=== PATIENT | female | born 1995 | race Caucasian/White ===

== ENCOUNTER → 2019-08-06 13:26 | Outpatient (BNVA) | payer MEDICAID, SELFPAY | PROVIDERS: Visit Provider Nurse Practitioner Women's Health | DX: O09.891 Supervision of other high risk pregnancies, first trimester (principal); Z3A.08 8 weeks gestation of pregnancy | CPT/HCPCS: 81003 ==

== ENCOUNTER → 2019-08-16 08:57 | Outpatient (BNVA) | payer MEDICAID, SELFPAY | PROVIDERS: Visit Provider Obstetrics & Gynecology Female Pelvic Medicine and Reconstructive Surgery | DX: O09.891 Supervision of other high risk pregnancies, first trimester (principal); Z3A.10 10 weeks gestation of pregnancy | CPT/HCPCS: 80307; 81003; 85027; 86592; 86762; 86803; 86850; 86900; 87086; 87340; 87806 ==

== ENCOUNTER → 2019-09-02 09:42 | Outpatient (BNVA) | payer MEDICAID, SELFPAY | PROVIDERS: Visit Provider Obstetrics & Gynecology | DX: N89.8 Other specified noninflammatory disorders of vagina; O09.891 Supervision of other high risk pregnancies, first trimester; O09.299 Supervision of pregnancy with other poor reproductive or obstetric history, unspecified trimester; Z30.2 Encounter for sterilization | CPT/HCPCS: 81000; 87491; 87591; 87661 ==

== ENCOUNTER → 2019-09-09 14:14 | Outpatient (BNVA) | payer MEDICAID, SELFPAY | PROVIDERS: Visit Provider Obstetrics & Gynecology | DX: O09.891 Supervision of other high risk pregnancies, first trimester (principal); O09.299 Supervision of pregnancy with other poor reproductive or obstetric history, unspecified trimester; Z30.2 Encounter for sterilization; N89.8 Other specified noninflammatory disorders of vagina | CPT/HCPCS: 84156 ==

== ENCOUNTER 2019-09-20 20:02 | Emergency (ER) | payer MEDICAID, SELFPAY ==
[2019-09-20 20:08] VITALS: BP 119/69; PULSE 96; RESP 16; O2SAT 98; BMI 28.3
[2019-09-20 20:12] VITALS: TEMP 36.8
--- NOTE | 2019-09-20 20:18 | PC.NURSE ---
PATIENT STATES SHE FELT LIKE PASSING OUT ON MONDAY DURING THE DAY. PATIENT STATES SHE WOKE UP IN THE MIDDLE OF THE NIGHT ON MONDAY WITH THE SHAKES AND IT DIDNT GO AWAY SO THE TOOK TYLENOL AND CHECKED HER TEMPERATURE BUT DID NOT HAVE A FEVER. PATIENT STATES EVER SINCE THEN SHE HAS NOT FELT GOOD AND HAS HAD A HEADACHE CONSTANTLY SINCE. PATIENT STATES SHE IS 15 WEEKS WITH HER THIRD AND HAD PRE-ECLAMPSIA WITH HER FIRST .
--- NOTE | 2019-09-20 20:24 | ED_ITS ---
HPI - Dizziness General: Chief Complaint: Dizziness Stated Complaint: 15 WEEKS PREG/DIZZY Time Seen by Provider: 09/20/19 20:05 Source: patient Mode of arrival: ambulatory Limitations: no limitations History of Present Illness: MD elicited complaint: dizziness, lightheadedness and near syncope Description: lightheadedness Review of Systems General: Reports: 10 or more systems reviewed and unremarkable except in HPI and below PFSH ED PFSH: Medical History No pertinent past medical history Denies diabetes, asthma, seizures, hypertension, DVT/PE Surgical History No history of previous surgery Family History Grandfather Diabetes maternal Cancer Maternal-liver Grandmother Diabetes maternal Mother Thyroid condition Sister Thyroid condition Family/Other Breast cancer Paternal aunt; diagnosed in late 30s Denies family history of Colon cancer Ovarian cancer Heart disease Hyperlipidemia Hypertension Uterine cancer Stroke Social History Smoking and tobacco status: never smoked Alcohol intake: never Additional social history: - Drug use: Denies Alcohol use: Drank socially, once monthly on average, prior to . Reports she drank heavily in high school. 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 Physical Exam Const: COMMON NORMALS: no apparent distress, oriented x3, no limitations and alert GENERAL APPEARANCE: cooperative and comfortable ORIENTATION/CONSCIOUSNESS: Yes awake, Yes oriented to person, Yes oriented to place and Yes oriented to time HENMT: COMMON NORMALS: normocephalic, head/scalp atraumatic, external ears normal, EAC's normal, TM's normal bilaterally and external nose normal HEAD & SCALP: normal to inspection, normocephalic and atraumatic FACE & SINUS: normal facial exam, sinuses nontender and face symmetric NOSE: external nose normal, nares normal and no nasal discharge EXTERNAL EAR: Yes external ears normal EXTERNAL AUDITORY CANAL: EAC's normal TYMPANIC MEMBRANE: TM's normal bilaterally MOUTH: oral and palatal mucosa normal, lip normal and tongue normal THROAT: posterior oropharynx normal, tonsils normal and uvula midline Eye: COMMON NORMALS: PERRL, EOMs intact bilaterally and conjunctivae normal GENERAL EYE: normal appearance of both eyes and normal light reflex EYELID: eyelids normal CONJUNCTIVA: Yes conjunctivae normal PUPIL: Yes PERRL EOM: Yes EOM abnormal DIRECT OPHTHALMOSCOPY: Yes normal light reflex Neck/C-Spine: COMMON NORMALS: full ROM, no lymphadenopathy, supple, no meningeal signs, no JVD and thyroid normal GENERAL: Yes normal visual inspection THYROID: thyroid normal CERVICAL SPINE: Yes cervical ROM normal and Yes normal cervical lordosis Lymph: LYMPHATIC: no lymphadenopathy noted Chest: COMMONS NORMALS: inspection of chest normal and palpation of chest normal Resp: COMMON NORMALS: normal respiratory effort, no retractions and clear to auscultation bilaterally AUSCULTATION: clear to auscultation bilaterally Cardio: COMMON NORMALS: no JVD, regular rate, regular rhythm, S1 normal heart sound, S2 normal heart sound, no gallops, no clicks, no murmurs, no rub and peripheral pulses 2+ throughout RATE: regular rate RHYTHM: regular rhythm HEART SOUNDS: S1 normal and S2 normal PERIPHERAL PULSES: pulses 2+ throughout GI: COMMON NORMALS: normal to inspection, nondistended, normoactive bowel sounds, soft to palpation, non-tender and no masses PALPATION: Yes soft : COMMON NORMALS: Yes no CVA tenderness and Yes external appearance normal BLADDER/KIDNEY EXAM: Yes no CVA tenderness Back/Pelvis: COMMON NORMALS: no CVA tenderness, thoracic and lumbar spine normal to inspection, no thoracic nor lumbar tenderness and thoraco-lumbar ROM normal Extremity: COMMON NORMALS: normal to inspection, full ROM, normal capillary refill, no joint enlargement, no clubbing, cyanosis or edema, no calf tenderness and no pedal edema GENERAL: Yes normal exam except as noted Neuro: COMMON NORMALS: oriented x3, moves all extremities, no focal motor deficits, no sensory deficits noted and gait normal SENSORIUM/ORIENTATION: Yes alert, Yes oriented to person, Yes oriented to place and Yes oriented to time MENINGEAL SIGNS: Yes no meningeal signs Psych: COMMON NORMALS: mental status grossly normal, thought process normal, cooperative, affect normal, speech normal and activity/motor behavior normal SPEECH: Yes normal speech THOUGHT PROCESS: normal thought process Skin: COMMON NORMALS: no rashes or lesions noted, no wounds and skin turgor normal GENERAL SKIN EXAM: no rashes or lesions noted and turgor normal Course ED course: pt notes dizziness x 1 week; labs drawn to assess for anemia. Labs are otherwise wnl. IV fluids given as well. Reevaluation(s): Reevaluation #1: Pt vitals are stable and lab work shows no acute findings for infection or anemia. Urine is positive for leuk estrase. Will treat for UTI and have follow up with PCP. Time: 21:13 Vital Signs: Vital signs: Vital Signs Temperature 98.2 F 09/20/19 20:12 Pulse Rate 77 09/20/19 20:40 Respiratory Rate 14 09/20/19 20:40 Blood Pressure 113/72 09/20/19 20:40 Pulse Oximetry 97 09/20/19 20:40 MDM - Dizziness Lab Data: Labs: Lab Results 09/20/19 09/20/19 09/20/19 Range/Units 20:30 20:35 20:35 WBC 5.2 (4.0-10.0) 10^3/ uL RBC 4.38 (4.1-5.3) 10^6/u L Hgb 13.0 (11.5-15.3) g/dL Hct 38.1 (37.0-47.0) % MCV 87.0 (81-99) fL MCH 29.7 (28.0-34.0) pg MCHC 34.1 (30.0-36.0) g/dL RDW 13.4 (12.1-15.1) % Plt Count 167 (130-400) 10^3/c mm MPV 9.6 (7.4-10.4) fL Neut % (Auto) 69.8 % Lymph % (Auto) 22.2 % [place] % (Auto) 7.2 % Eos % (Auto) 0.4 % Baso % (Auto) 0.2 % Neut # (Auto) 3.6 (1.8-7.7) 10^3/u L Lymph # (Auto) 1.2 (0.8-4.8) 10^3/u L [place] # (Auto) 0.4 (0.2-0.9) 10^3/u L Eos # (Auto) 0.0 (0.0-0.8) 10^3/u L Baso # (Auto) 0.0 (0.0-0.1) 10^3/u L Nucleated RBC % (a uto) 0 % Nucleated RBCs # 0.0 /100WBC Sodium 135 L (136-145) mmol/L Potassium 3.7 (3.5-5.1) mmol/L Chloride 102 (98-107) mmol/L Carbon Dioxide 23 (22-29) mmol/L Anion Gap 13.7 (5-19) BUN 7 (6-20) mg/dL Creatinine 0.6 (0.5-0.9) mg/dL GFR Calculation 126.2 (90-130) mL/min Glucose 89 (65-115) mg/dL Calculated Osmolal ity 275 L (285-295) mOsm/k g Calcium 9.0 (8.5-10.5) mg/dL Total Bilirubin 0.3 (0.15-1.2) mg/dL AST 20 (0-32) U/L ALT 11 (0-33) U/L Alkaline Phosphata se 61 (35-105) IU/L Total Protein 7.6 (6.6-8.7) g/dL Albumin 4.0 (3.5-5.2) g/dL Globulin 3.6 (1.3-4.6) g/dL Urine Color Yellow (Yellow) Urine Appearance Clear (CLEAR) Urine pH 5 (5-7) Ur Specific Gravit y 1.020 (1.005-1.030) Urine Protein Neg (Negative) Urine Glucose (UA) Norm (Normal) Urine Ketones 3+ H (Negative) Urine Blood Neg (Negative) Urine Nitrate Negative (Negative) Urine Bilirubin 1+ H (NEGATIVE) Urine Urobilinogen 4 H (Negative) mg/dL Ur Leukocyte Amber ase 2+ H (Negative) Discharge Plan Discharge Patient Disposition: Home, Self-Care Clinical Impression: UTI (urinary tract infection) Condition: Stable Prescriptions: New nitrofurantoin monohyd/m-cryst [Macrobid] 100 mg capsule 100 mg PO BID 7 Days Qty: 14 RF: 0 No Action prenat.vits,alfredito,[id number]-encr-hyzud Tablet 1 tab PO DAILY RF: 0 Discharge Diet: Usual diet Discharge Activity: Increase activity as tolerated Activity Restrictions/Additional Instructions: Increase fluid intake and follow up with your OBGYN next week. Coding Level of Care Code ED Sewage Plant Supervisor for [facility] Fwd Exam Comprehensive
--- NOTE | 2019-09-20 20:25 | PC.NURSE ---
PATIENT AMBULATED TO BATHROOM WITH CLEAN CATCH PACKAGING, CLEAN CATCH EDUCATION PROVIDED TO PATIENT.
[2019-09-20] MEDS: sodium chloride 0.9% 500 ML 999 ML IV ×2 (20:36→21:12)
[2019-09-20 20:40] VITALS: BP 113/72; PULSE 77; RESP 14; O2SAT 97
[2019-09-20 20:42] LABS: Basophils % 0.2 %; Eosinophils % 0.4 %; Hematocrit 38.1 % (37.0-47.0); Lymphocytes # 1.2 10^3/uL (0.8-4.8); Lymphocytes % 22.2 %; Mean Corpuscular HGB Conc 34.1 g/dL (30.0-36.0); Mean Corpuscular Hemoglobin 29.7 pg (28.0-34.0); Mean Platelet Volume 9.6 fL (7.4-10.4); Monocytes # 0.4 10^3/uL (0.2-0.9); Monocytes % 7.2 %; Neutrophils # 3.6 10^3/uL (1.8-7.7); Neutrophils % 69.8 %; Nucleated Red Blood Cells % 0 %; Platelet Count 167 10^3/cmm (130-400); Red Blood Count 4.38 10^6/uL (4.1-5.3); Red Cell Distribution Width 13.4 % (12.1-15.1); White Blood Count 5.2 10^3/uL (4.0-10.0)
[2019-09-20 20:49] LABS: Add Urine Microscopic? YES; Bilirubin Urine 1+ (NEGATIVE); Blood Urine Neg (Negative); Glucose Urine UA Norm (Normal); Ketones Urine 3+ (Negative); Leukocyte Esterase Urine 2+ (Negative); Nitrate Urine Negative (Negative); Protein Urine Neg (Negative); Urine Appearance Clear (CLEAR); Urine Color Yellow (Yellow); Urobilinogen Urine 4 mg/dL (Negative); pH Urine 5 (5-7)
[2019-09-20 20:56] LABS: Alanine Aminotransferase 11 U/L (0-33); Alkaline Phosphatase 61 IU/L (35-105); Anion Gap 13.7 (5-19); Aspartate Amino Transferase 20 U/L (0-32); Blood Urea Nitrogen 7 mg/dL (6-20); Carbon Dioxide 23 mmol/L (22-29); Chloride 102 mmol/L (98-107); Globulin 3.6 g/dL (1.3-4.6); Glomerular Filtration Rate 126.2 mL/min (90-130); Glucose 89 mg/dL (65-115); Osmolality Calculated 275 mOsm/kg (285-295); Potassium 3.7 mmol/L (3.5-5.1); Sodium 135 mmol/L (136-145); Total Bilirubin 0.3 mg/dL (0.15-1.2); Total Protein 7.6 g/dL (6.6-8.7)
[2019-09-20 21:12] LABS: Bacteria Urine 2+; Mucus Urine 1+; RBC Urine 0-4 /hpf (0-2); WBC Urine 25-40 /hpf (0-5)
[2019-09-20] MEDS: nitrofurantoin SR (BID) 100 mg Capsule PO (21:12)
[2019-09-20 21:13] LABS: Add Urine Culture? Yes
--- NOTE | 2019-09-20 21:16 | ED_ITS ---
HPI - Dizziness General: Chief Complaint: Dizziness Stated Complaint: 15 WEEKS PREG/DIZZY Time Seen by Provider: 09/20/19 20:05 Source: patient Mode of arrival: ambulatory Limitations: no limitations Review of Systems General: Reports: 10 or more systems reviewed and unremarkable except in HPI and below PFSH ED PFSH: Medical History No pertinent past medical history Denies diabetes, asthma, seizures, hypertension, DVT/PE Surgical History No history of previous surgery Family History Grandfather Diabetes maternal Cancer Maternal-liver Grandmother Diabetes maternal Mother Thyroid condition Sister Thyroid condition Family/Other Breast cancer Paternal aunt; diagnosed in late 30s Denies family history of Colon cancer Ovarian cancer Heart disease Hyperlipidemia Hypertension Uterine cancer Stroke Social History Smoking and tobacco status: never smoked Alcohol intake: never Additional social history: - Drug use: Denies Alcohol use: Drank socially, once monthly on average, prior to . Reports she drank heavily in high school. 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 Physical Exam Const: COMMON NORMALS: no apparent distress, oriented x3, no limitations and alert GENERAL APPEARANCE: cooperative and comfortable ORIENTATION/CONSCIOUSNESS: Yes awake, Yes oriented to person, Yes oriented to place and Yes oriented to time HENMT: COMMON NORMALS: normocephalic, head/scalp atraumatic, external ears normal, EAC's normal, TM's normal bilaterally and external nose normal HEAD & SCALP: normal to inspection, normocephalic and atraumatic FACE & SINUS: normal facial exam, sinuses nontender and face symmetric NOSE: external nose normal, nares normal and no nasal discharge EXTERNAL EAR: Yes external ears normal EXTERNAL AUDITORY CANAL: EAC's normal TYMPANIC MEMBRANE: TM's normal bilaterally MOUTH: oral and palatal mucosa normal, lip normal and tongue normal THROAT: posterior oropharynx normal, tonsils normal and uvula midline Eye: COMMON NORMALS: PERRL, EOMs intact bilaterally and conjunctivae normal GENERAL EYE: normal appearance of both eyes and normal light reflex EYELID: eyelids normal CONJUNCTIVA: Yes conjunctivae normal PUPIL: Yes PERRL EOM: Yes EOM abnormal DIRECT OPHTHALMOSCOPY: Yes normal light reflex Neck/C-Spine: COMMON NORMALS: full ROM, no lymphadenopathy, supple, no meningeal signs, no JVD and thyroid normal GENERAL: Yes normal visual inspection THYROID: thyroid normal CERVICAL SPINE: Yes cervical ROM normal and Yes normal cervical lordosis Lymph: LYMPHATIC: no lymphadenopathy noted Chest: COMMONS NORMALS: inspection of chest normal and palpation of chest normal Resp: COMMON NORMALS: normal respiratory effort, no retractions and clear to auscultation bilaterally AUSCULTATION: clear to auscultation bilaterally Cardio: COMMON NORMALS: no JVD, regular rate, regular rhythm, S1 normal heart sound, S2 normal heart sound, no gallops, no clicks, no murmurs, no rub and peripheral pulses 2+ throughout RATE: regular rate RHYTHM: regular rhythm HEART SOUNDS: S1 normal and S2 normal PERIPHERAL PULSES: pulses 2+ throughout GI: COMMON NORMALS: normal to inspection, nondistended, normoactive bowel sounds, soft to palpation, non-tender and no masses PALPATION: Yes soft : COMMON NORMALS: Yes no CVA tenderness and Yes external appearance normal BLADDER/KIDNEY EXAM: Yes no CVA tenderness Back/Pelvis: COMMON NORMALS: no CVA tenderness, thoracic and lumbar spine normal to inspection, no thoracic nor lumbar tenderness and thoraco-lumbar ROM normal Extremity: COMMON NORMALS: normal to inspection, full ROM, normal capillary refill, no joint enlargement, no clubbing, cyanosis or edema, no calf tenderness and no pedal edema GENERAL: Yes normal exam except as noted Neuro: COMMON NORMALS: oriented x3, moves all extremities, no focal motor deficits, no sensory deficits noted and gait normal SENSORIUM/ORIENTATION: Yes alert, Yes oriented to person, Yes oriented to place and Yes oriented to time MENINGEAL SIGNS: Yes no meningeal signs Psych: COMMON NORMALS: mental status grossly normal, thought process normal, cooperative, affect normal, speech normal and activity/motor behavior normal SPEECH: Yes normal speech THOUGHT PROCESS: normal thought process Skin: COMMON NORMALS: no rashes or lesions noted, no wounds and skin turgor normal GENERAL SKIN EXAM: no rashes or lesions noted and turgor normal Course ED course: pt states dizziness over the past one week; 15 weeks . IV fluids ordered and UA as well as labs Reevaluation(s): Reevaluation #1: Pt UA shows leuk estrase. Will treat for UTI. Will proceed with DC if FHTs are wnl. Time: 21:20 Reevaluation #2: FHTs 154; proceed with dc Time: 21:33 Vital Signs: Vital signs: Vital Signs Temperature 98.2 F 09/20/19 20:12 Pulse Rate 82 09/20/19 21:17 Respiratory Rate 14 09/20/19 21:17 Blood Pressure 116/74 09/20/19 21:17 Pulse Oximetry 100 09/20/19 21:17 MDM - Dizziness Lab Data: Labs: Lab Results 09/20/19 09/20/19 09/20/19 Range/Units 20:30 20:35 20:35 WBC 5.2 (4.0-10.0) 10^3/ uL RBC 4.38 (4.1-5.3) 10^6/u L Hgb 13.0 (11.5-15.3) g/dL Hct 38.1 (37.0-47.0) % MCV 87.0 (81-99) fL MCH 29.7 (28.0-34.0) pg MCHC 34.1 (30.0-36.0) g/dL RDW 13.4 (12.1-15.1) % Plt Count 167 (130-400) 10^3/c mm MPV 9.6 (7.4-10.4) fL Neut % (Auto) 69.8 % Lymph % (Auto) 22.2 % [place] % (Auto) 7.2 % Eos % (Auto) 0.4 % Baso % (Auto) 0.2 % Neut # (Auto) 3.6 (1.8-7.7) 10^3/u L Lymph # (Auto) 1.2 (0.8-4.8) 10^3/u L [place] # (Auto) 0.4 (0.2-0.9) 10^3/u L Eos # (Auto) 0.0 (0.0-0.8) 10^3/u L Baso # (Auto) 0.0 (0.0-0.1) 10^3/u L Nucleated RBC % (a uto) 0 % Nucleated RBCs # 0.0 /100WBC Sodium 135 L (136-145) mmol/L Potassium 3.7 (3.5-5.1) mmol/L Chloride 102 (98-107) mmol/L Carbon Dioxide 23 (22-29) mmol/L Anion Gap 13.7 (5-19) BUN 7 (6-20) mg/dL Creatinine 0.6 (0.5-0.9) mg/dL GFR Calculation 126.2 (90-130) mL/min Glucose 89 (65-115) mg/dL Calculated Osmolal ity 275 L (285-295) mOsm/k g Calcium 9.0 (8.5-10.5) mg/dL Total Bilirubin 0.3 (0.15-1.2) mg/dL AST 20 (0-32) U/L ALT 11 (0-33) U/L Alkaline Phosphata se 61 (35-105) IU/L Total Protein 7.6 (6.6-8.7) g/dL Albumin 4.0 (3.5-5.2) g/dL Globulin 3.6 (1.3-4.6) g/dL Urine Color Yellow (Yellow) Urine Appearance Clear (CLEAR) Urine pH 5 (5-7) Ur Specific Gravit y 1.020 (1.005-1.030) Urine Protein Neg (Negative) Urine Glucose (UA) Norm (Normal) Urine Ketones 3+ H (Negative) Urine Blood Neg (Negative) Urine Nitrate Negative (Negative) Urine Bilirubin 1+ H (NEGATIVE) Urine Urobilinogen 4 H (Negative) mg/dL Ur Leukocyte Amber ase 2+ H (Negative) Urine RBC 0-4 H (0-2) /hpf Urine WBC 25-40 H (0-5) /hpf Ur Squamous Epith Cells 5-10 H (0-5) Urine Bacteria 2+ H (NONE) Urine Mucus 1+ Discharge Plan Discharge Patient Disposition: Home, Self-Care Clinical Impression: UTI (urinary tract infection) Condition: Stable Prescriptions: New Macrobid 100 mg capsule 100 mg PO BID 7 Days Qty: 14 RF: 0 No Action prenat.vits,alfredito,[id number] Tablet 1 tab PO DAILY RF: 0 Discharge Diet: Usual diet Discharge Activity: Increase activity as tolerated Activity Restrictions/Additional Instructions: Increase fluid intake and follow up with your OBGYN next week. Coding Level of Care Code ED National Stormwater Leader for g Fwd Exam Comprehensive
[2019-09-20 21:17] VITALS: BP 116/74; PULSE 82; RESP 14; O2SAT 100
--- NOTE | 2019-09-20 21:28 | PC.NURSE ---
FHT 154
[2019-09-20 21:33] VITALS: BP 120/78; PULSE 89; RESP 16; O2SAT 100
== END 2019-09-20 21:35 | disposition home or self-care (01) ==
LOC: ER 21:19
PROVIDERS: Emergency Provider Nurse Practitioner Family
DX: O23.42 Unspecified infection of urinary tract in pregnancy, second trimester (principal); Z3A.15 15 weeks gestation of pregnancy
CPT/HCPCS: 12345; 80053; 81001; 85025; 87086; 96360; 99283; A9270; J7040

== ENCOUNTER → 2019-09-30 10:09 | Outpatient (BNVA) | payer MEDICAID, SELFPAY | PROVIDERS: Visit Provider Obstetrics & Gynecology | DX: Z34.90 Encounter for supervision of normal pregnancy, unspecified, unspecified trimester (principal); N89.8 Other specified noninflammatory disorders of vagina; O09.299 Supervision of pregnancy with other poor reproductive or obstetric history, unspecified trimester; O09.891 Supervision of other high risk pregnancies, first trimester; Z30.2 Encounter for sterilization; Z34.81 Encounter for supervision of other normal pregnancy, first trimester | CPT/HCPCS: 84315; 87491; 87591; 87661 ==

== ENCOUNTER → 2019-10-30 10:33 | Outpatient (BNVA) | payer MEDICAID, SELFPAY | PROVIDERS: Visit Provider Obstetrics & Gynecology | DX: O09.299 Supervision of pregnancy with other poor reproductive or obstetric history, unspecified trimester (principal); Z30.2 Encounter for sterilization; O09.891 Supervision of other high risk pregnancies, first trimester; Z04.89 Encounter for examination and observation for other specified reasons | CPT/HCPCS: 81000 ==

== ENCOUNTER → 2019-11-26 08:45 | Outpatient (BNVA) | payer MEDICAID, SELFPAY | PROVIDERS: Visit Provider Obstetrics & Gynecology | DX: Z34.90 Encounter for supervision of normal pregnancy, unspecified, unspecified trimester (principal) | CPT/HCPCS: 81000 ==

== ENCOUNTER → 2019-12-25 08:22 | Outpatient (BNVA) | payer MEDICAID, SELFPAY | PROVIDERS: Visit Provider Nurse Practitioner Women's Health | DX: Z34.82 Encounter for supervision of other normal pregnancy, second trimester (principal) | CPT/HCPCS: 81000; 82950; 85027 ==

== ENCOUNTER 2020-01-03 12:20 | Outpatient (CLI) | payer MEDICAID, SELFPAY ==
[2020-01-03 12:30] VITALS: RESP 16; TEMP 36.8
[2020-01-03 12:43] VITALS: BMI 31.5
[2020-01-03 13:19] LABS: Actim Prom Negative
[2020-01-03] MEDS: terbutaline 1 mg/mL INJ 0.25 MG SUBCUT (14:08)
[2020-01-03 14:17] VITALS: BP 110/61; PULSE 92
[2020-01-03 14:20] VITALS: BP 106/55; PULSE 85
[2020-01-03 14:27] VITALS: BP 113/65; PULSE 88
[2020-01-03 14:42] VITALS: BP 111/66; PULSE 86
== END 2020-01-03 14:47 | disposition home or self-care (01) ==
LOC: OPOB 12:32 → OBGYN 12:34
PROVIDERS: Visit Provider Obstetrics & Gynecology
DX: O26.899 Other specified pregnancy related conditions, unspecified trimester (principal); Z3A.00 Weeks of gestation of pregnancy not specified; N89.8 Other specified noninflammatory disorders of vagina
CPT/HCPCS: 59025; 83986; 84112; 96372; 99211; J3105

== ENCOUNTER → 2020-01-07 11:16 | Outpatient (BNVA) | payer MEDICAID, SELFPAY | PROVIDERS: Visit Provider Obstetrics & Gynecology | DX: Z34.90 Encounter for supervision of normal pregnancy, unspecified, unspecified trimester (principal) | CPT/HCPCS: 81000 ==

== ENCOUNTER 2020-01-08 22:17 | Outpatient (CLI) | payer MEDICAID, SELFPAY ==
[2020-01-08 22:32] VITALS: BP 118/58; PULSE 86
[2020-01-08 22:36] VITALS: BMI 32.4
[2020-01-08 22:37] VITALS: TEMP 36.7
[2020-01-09 00:48] VITALS: BP 110/64; PULSE 69
[2020-01-09 00:59] LABS: Protein Urine Neg (Negative); Specific Gravity, Urine 1.015 (1.005-1.030); Urine Appearance Clear (CLEAR); Urine Color Yellow (Yellow); pH Urine 6 (5-7)
[2020-01-09 01:00] LABS: Add Urine Culture? Yes; Add Urine Microscopic? YES; Bacteria Urine TRACE; Bilirubin Urine Neg (NEGATIVE); Blood Urine Neg (Negative); Glucose Urine UA Norm (Normal); Ketones Urine Negative (Negative); Leukocyte Esterase Urine 2+ (Negative); Nitrate Urine Negative (Negative); RBC Urine 0-4 /hpf (0-2); Squamous Epithelial Cell Urine 0-4 (0-5); Urobilinogen Urine Norm (Negative); WBC Urine 25-40 /hpf (0-5)
[2020-01-09 01:27] VITALS: BP 115/65; PULSE 79
[2020-01-09 01:35] VITALS: BP 115/65; PULSE 79; RESP 16; TEMP 36.7
== END 2020-01-09 01:41 | disposition home or self-care (01) ==
LOC: OPOB 22:28 → OBGYN 22:28
PROVIDERS: Visit Provider Obstetrics & Gynecology
DX: O26.899 Other specified pregnancy related conditions, unspecified trimester (principal); Z3A.00 Weeks of gestation of pregnancy not specified; R10.9 Unspecified abdominal pain
CPT/HCPCS: 81001; 81003; 87086; 99211

== ENCOUNTER → 2020-01-21 09:02 | Outpatient (BNVA) | payer MEDICAID, SELFPAY | PROVIDERS: Visit Provider Obstetrics & Gynecology | DX: O36.60X0 Maternal care for excessive fetal growth, unspecified trimester, not applicable or unspecified (principal); Z30.2 Encounter for sterilization; O09.299 Supervision of pregnancy with other poor reproductive or obstetric history, unspecified trimester; O09.891 Supervision of other high risk pregnancies, first trimester | CPT/HCPCS: 81000 ==

== ENCOUNTER 2020-01-31 18:00 | Outpatient (CLI) | payer MEDICAID, SELFPAY ==
[2020-01-31] VITALS (35 sets, daily range): BP systolic 0–152; BP diastolic 0–91; PULSE 74–115; RESP 16–18; TEMP 36.8–37.1; O2SAT 98–100; BMI 32.5
[2020-01-31 18:38] LABS: Bilirubin Urine Neg (NEGATIVE); Blood Urine Neg (Negative); Glucose Urine UA Norm (Normal); Ketones Urine Negative (Negative); Leukocyte Esterase Urine Negative (Negative); Nitrate Urine Negative (Negative); Protein Urine Neg (Negative); Urine Appearance Clear (CLEAR); Urine Color Yellow (Yellow); Urobilinogen Urine Neg (Negative); pH Urine 6 (5-7)
[2020-01-31 18:39] LABS: Add Urine Culture? No; Bacteria Urine TRACE; Mucus Urine 2+; WBC Urine 0-4 /hpf (0-5)
[2020-01-31] MEDS: terbutaline 1 mg/mL INJ 0.25 MG SUBCUT ×2 (19:08→20:17)
[2020-01-31] MEDS: betamethasone susp 6 mg/mL 5 mL 12 MG IM (22:04)
--- NOTE | 2020-01-31 22:13 | P.PN_ITS ---
Subjective Subjective: Interval history: Ms. Leavitt is a 24 year old with LMP 06/06/2019, NERIS of 03/12/2020, which places her at 32 5/7 weeks today. Came to L&D complaining of contractions, and leaking fluids. Vitals/I&O/Wt Last Vital Signs Temp 98.3 F 01/31/20 18:20 Pulse 85 01/31/20 21:49 Resp 18 01/31/20 18:20 BP 152/91 01/31/20 21:49 Pulse Ox 100 01/31/20 21:12 Weight last 48 hrs Weight 83.461 kg Physical Exam Narrative: EXAM NARRATIVE: GA: Alert and oriented ?3. Lungs: Clear to auscultation bilaterally. Heart: Regular rhythm Abdomen: Gravid, fundal height correlates dates, nontender. RN CARDIAC CATH: SVE; dilation: 4 cm, effacement: 60 %, station: -4, presentation: Vertex, membranes: intact. ActimProm negative Extremities: no edema, no cyanosis, no calves pain. heart tracing: Basal rate: 140s bpm, Variability: Moderate, Accelerations: Present, Decelerations: Absent, Contractions: Every 10-20 minutes. A&P Assessment and plan (1) labor in third trimester: Ms. eLavitt is a 24 year old with LMP 06/06/2019, NERIS of 0 03/12/2020, which places her at 34 1/7 weeks today. Came to labor and delivery complaining of contractions since last night approximately every 2-5 minutes. Upon arrival to labor and delivery contractions were noted to be every 5 minutes. Tocolysis with terbutaline given on 2 occasions. Cervical changes were noticed from 2 cm to 4 cm in 4 hours. Contractions have subsided after the second dose of terbutaline. Patient was treated with corticosteroids for lung maturation. Due to EGA the patient was counseled regarding the recommendation to transfer to a higher care facility, that have NICU services. Patient was counseled regarding the transfer and she agreed. [facility] system was contacted, and hospitalist Dr. Russell accepted the patient. Status: Acute Qualifiers: labor delivery status: without delivery Qualified Code(s): O60.03 - labor without delivery, third trimester Attestations Medical Necessity Statement*: In my professional opinion per admitting diagnosis Coding Level of Care Code Acute Construction Management Assistant for [facility] Fwd Diagnoses labor in third trimester O60.03 labor delivery status: without delivery
== END 2020-01-31 23:04 | disposition intermediate care facility (04) ==
LOC: OPOB 18:04 → OBGYN 18:05
PROVIDERS: Visit Provider Obstetrics & Gynecology
DX: O60.03 Preterm labor without delivery, third trimester (principal); Z3A.34 34 weeks gestation of pregnancy
CPT/HCPCS: 12345; 81001; 96372; 99211; J0702; J3105

== ENCOUNTER → 2020-02-04 11:22 | Outpatient (BNVA) | payer MEDICAID, SELFPAY | PROVIDERS: Visit Provider Nurse Practitioner Women's Health | DX: Z34.90 Encounter for supervision of normal pregnancy, unspecified, unspecified trimester (principal) | CPT/HCPCS: 81000 ==

== ENCOUNTER 2020-02-07 11:48 | Observation (INO) | payer MEDICAID, SELFPAY ==
[2020-02-07 12:00] VITALS: BP 135/75; PULSE 133
[2020-02-07 12:31] VITALS: BP 116/71; PULSE 98
[2020-02-07 12:35] VITALS: BMI 32.5
[2020-02-07 12:45] LABS: Nitrazine Paper, PH Negative
[2020-02-07 13:00] VITALS: BP 117/78; PULSE 101
[2020-02-07 13:32] VITALS: BP 117/78; PULSE 101
== END 2020-02-07 13:30 | disposition home or self-care (01) ==
LOC: OBGYN 02-10 08:54
PROVIDERS: Admitting Provider Obstetrics & Gynecology; PCP Obstetrics & Gynecology; Visit Provider Obstetrics & Gynecology
DX: O26.899 Other specified pregnancy related conditions, unspecified trimester (principal)
CPT/HCPCS: 59025; 83986; 99211; G0378; G0379

== ENCOUNTER 2020-02-17 00:34 | Inpatient (IN) | payer MEDICAID, SELFPAY ==
[2020-02-16] VITALS (16 sets, daily range): BP systolic 0–140; BP diastolic 0–74; PULSE 61–96; TEMP 36.8; O2SAT 98–99; BMI 33.5
[2020-02-16] MEDS: terbutaline 1 mg/mL INJ 0.25 MG SUBCUT (22:01)
[2020-02-17] VITALS (111 sets, daily range): BP systolic 0–151; BP diastolic 0–87; PULSE 61–122; RESP 18; TEMP 37–37.1; O2SAT 98–100
[2020-02-17 00:49] LABS: Basophils % 0.2 %; Eosinophils % 0.3 %; Hematocrit 32.9 % (37.0-47.0); Hemoglobin 10.4 g/dL (11.5-15.3); Lymphocytes # 3.1 10^3/uL (0.8-4.8); Lymphocytes % 28.2 %; Mean Corpuscular HGB Conc 31.6 g/dL (30.0-36.0); Mean Corpuscular Hemoglobin 26.4 pg (28.0-34.0); Mean Corpuscular Volume 83.5 fL (81-99); Mean Platelet Volume 9.8 fL (7.4-10.4); Monocytes # 1.1 10^3/uL (0.2-0.9); Monocytes % 9.7 %; Neutrophils # 6.65 10^3/uL (1.8-7.7); Neutrophils % 61.3 %; Nucleated Red Blood Cells % 0 %; Platelet Count 182 10^3/cmm (130-400); Red Blood Count 3.94 10^6/uL (4.1-5.3); Red Cell Distribution Width 12.9 % (12.1-15.1); White Blood Count 10.8 10^3/uL (4.0-10.0)
[2020-02-17] MEDS: ampicillin 2,000 MG in sodium chloride 0.9% (plus) 50 ML 100 MG IV (01:18)
[2020-02-17] MEDS: dextrose 5%-lactated ringers 1,000 ML 125 ML IV ×2 (01:18→11:51)
[2020-02-17] MEDS: ampicillin 1,000 MG in sodium chloride 0.9% (plus) 50 ML 100 MG IV ×3 (08:42→16:22)
[2020-02-17] MEDS: lactated ringers 1,000 ML 999 ML IV (10:30)
--- NOTE | 2020-02-17 12:10 | P.ANESASSM_ITS ---
Pre-Anesthetic Assessment Pre-Anesthetic Assessment: Height/Weight: Height 1.6 m Weight 85.729 kg Temp Pulse Resp BP Pulse Ox 98.8 F 104 H 18 128/61 98 02/17/20 11:30 02/17/20 12:38 02/17/20 11:30 02/17/20 12:38 02/17/20 12:41 Preop Diagnosis: IUP Proposed Procedure: Epidural Familial anesthetic complications: None Last intake: Drinking clears Social: Social History: No alcohol and No tobacco Exam: Pre-Anes Outpt Exam: alert, oriented x 3, clear to auscultation bilaterally and regular rate & rhythm Airway: Cervical ROM: WNL MP: 2 Dentition: Full Anesthetic Plan: ASA status: 2 Anesthesia: Regional (specify below) (epidural) Other: Preeclampsia in previous Risk of > 500 ml blood loss (7ml/kg in children): Yes, adequate IV access and fluids planned Meds/Allergies Current Medications: Current Medications Generic Name Dose Route Start Last Admin Trade Name Freq PRN Reason Stop Dose Admin Dextrose/Lactated Ringer's 1,000 mls @ 125 m ls/hr 02/17/20 00:30 02/17/20 11:51 Dextrose 5%-Lact ated Ringers IV 125 mls/hr .Q8H MIKE Administration Ampicillin Sodium 1,000 mg/ 50 mls @ 100 mls/ hr 02/17/20 04:30 02/17/20 12:38 Sodium Chloride IV 100 mls/hr Q4H MIKE Administration Protocol Lactated Ringer's 1,000 mls @ 999 m ls/hr 02/17/20 10:22 02/17/20 11:51 Lactated Ringers IV Infused .Q1H1M PRN Infusion ANESTHESIA Ropivacaine 200 mg in 100 mls @ 13 mls/hr 02/17/20 10:30 02/17/20 12:40 Naropin Premix EPIDURAL 13 mls/hr .Q7H42M MIKE Administration PFSH Anesthesia PFSH: Medical History No pertinent past medical history Denies diabetes, asthma, seizures, hypertension, DVT/PE PMD: Mayela Goode Surgical History No history of previous surgery Family History Grandfather Diabetes maternal Cancer Maternal-liver Grandmother Diabetes maternal Mother Thyroid condition Sister Thyroid condition Family/Other Breast cancer Paternal aunt; diagnosed in late 30s Denies family history of Colon cancer Ovarian cancer Heart disease Hyperlipidemia Hypertension Uterine cancer Stroke Social History Smoking and tobacco status: never smoked Alcohol intake: never Female Reproductive History: : 3 Data Anesthesia CBC & Chem 7: 02/17/20 00:15 Other Labs: Laboratory Results - last 48 hr 02/17/20 00:15 WBC 10.8 H RBC 3.94 L Hgb 10.4 L Hct 32.9 L MCV 83.5 MCH 26.4 L MCHC 31.6 RDW 12.9 Plt Count 182 MPV 9.8 Neut % (Auto) 61.3 Lymph % (Auto) 28.2 [place] % (Auto) 9.7 Eos % (Auto) 0.3 Baso % (Auto) 0.2 Neut # (Auto) 6.65 Lymph # (Auto) 3.1 [place] # (Auto) 1.1 H Eos # (Auto) 0.0 Baso # (Auto) 0.0 Nucleated RBC % (auto) 0 Nucleated RBCs # 0.0 Cardiac Studies: No Data to Display
--- NOTE | 2020-02-17 12:44 | ANES.PROC ---
Anesthesia Procedures Procedure/Date: 02/17/20 Epidural: Time Out Performed: Yes Consents Signed: Procedure Consent and NPO Consent Consent: requested by attending/covering physician, from patient, risks and benefits reviewed and patient agrees to proceed Lumbar Level: L3-L4 Epidural position: sitting Epidural procedure: sterile prep of area, 1% lidocaine to numb the area, 18 g needle, negative for paresthesia passed, neg for paresthesia, test dose given, 1.5% xylocaine 1:200k epi (3), 0.2% Ropivacaine bolus ml, placed PCEA, no systemic response, sterile dressing applied, L.U.D. no apparent complications and 0.2% Ropiavacaine @ mls/hr (13) Additional Comments: Unsuccesful attempt at L3-4; sucess at L2-3, JD at 5.5 cm, threaded to 11 cm
--- NOTE | 2020-02-17 12:45 | P.PN_ITS ---
Subjective Subjective: Interval history: 24-year-old female with an estimated gestational age at 36 weeks +4 days in active labor. Refers feeling better after the epidural Vitals/I&O/Wt Last Vital Signs Temp 98.6 F 02/17/20 15:19 Pulse 88 02/17/20 17:19 Resp 18 02/17/20 15:19 BP 123/71 02/17/20 17:19 Pulse Ox 98 02/17/20 13:01 02/17/20 02/17/20 02/17/20 06:59 14:59 22:59 Intake Total 2101.517 / 2101.517 12.750 / 2114.267 Balance 2101.517 / 2101.517 12.750 / 2114.267 Weight last 48 hrs Weight 85.729 kg Weight 85.729 kg Physical Exam Narrative: EXAM NARRATIVE: GA: Alert and oriented ?3. Lungs: Clear to auscultation bilaterally. Heart: Regular rhythm and rate. Abdomen: Gravid, fundal height correlates dates, nontender. LAST PUTTER AWAY: SVE; dilation: 6-7 cm, effacement: 60 %, station: -3, presentation: Vertex, membranes: IM. Extremities: no edema, no cyanosis, no calves pain. heart tracing: Basal rate: 140s bpm, Variability: Good, Accelerations: Present, Decelerations: Absent, Contractions: Every 6-7 minutes.. Urinary Catheter Management^: De Guzman: Cath Placed During This Visit: yes Reason for Continuing Indwelling Catheter: Other Urinary Catheter Date of Insertion: 02/17/20 Urinary Catheter Time of Insertion: 12:45 Data : 02/17/20 00:15 A&P Additional A&P Information EGA at 36+4 in active labor. vertex not well applied to pelvis. Contractions have spaced thousand the epidural. Oh dose oxytocin ordered. heart tracing category 1. scalp stimulation reassuring. Anticipate vaginal delivery Attestations Medical Necessity Statement*: In my professional opinion per admitting diagnosis Coding Level of Care Code Acute Nursing Service Director for [facility]
[2020-02-17] MEDS: oxytocin 30 UNIT/500 ML BAG IV (13:44)
[2020-02-17] MEDS: betamethasone susp 6 mg/mL 5 mL 12 MG IM (15:54)
[2020-02-17] MEDS: oxytocin 30 UNIT/500 ML BAG 7 UNIT IV (16:42)
--- NOTE | 2020-02-17 19:29 | P.PCNOB_ITS ---
Delivery Note: Date of delivery: February 17, 2020 Delivery: - PRE-DELIVERY DIAGNOSIS: 24-year-old 3 para 2-0-0-2 at 36 weeks and 4 days GBS unknown Active labor Depression on medication Desires permanent sterilization History of preeclampsia on aspirin POST-DELIVERY DIAGNOSIS: Vaginal delivery on 02/17/2020 Desires interval sterilization PROCEDURE: Vaginal delivery on 02/17/2020 ANESTHESIA: Epidural anesthesia DELIVERING PHYSICIAN: Pito Hewitt FACOG PRE-DELIVERY COURSE: Ms. Leavitt is a 24-year-old 3 para 2-0-0-2 at 36 weeks and 4 days gestation who presented to labor and delivery at 5 AM with reports of contraction. She was initially noted to be 3 cm, 50% and -3 station and had regular contractions. She received a single dose of terbutaline however contractions progressed despite medication and IV fluids and she became 5 cm, 80% and -2 station. Since she was already late decision was made to admit her for delivery. She was started on ampicillin for GBS prophylaxis for unknown GBS status and state. She had received a course of steroids and received a second single dose of steroids at about 3 PM on 02/17/2020. She was allowed to progress by herself initially and contractions which had been every 2 to 4 minutes had spaced out to every 5 to 7 minutes. Over the next 6 hours she made minimal cervical change and was 7 cm 70% and -2 station at 1 PM. Decision was made to start her on Pitocin which was titrated to a maximum of 13 mIU and with this she started to have regular contractions. Artificial rupture of membranes was performed at 5:43 PM with clear fluid at which point she was noted to be 6-7, 80% and 0 station. She made rapid cervical change and was fully dilated at 6:40 PM and had the urge to push. tracing thus far has been category 1. DELIVERY NOTE: She was set up in lithotomy position and was pushing effectively. She was noted to be +3 station and continued pushing well. The head delivered in JAMES position, nuchal cord x1 was present and was reduced over the head without any difficulty the shoulders and rest of the body followed with her next push. The baby's mouth and nose were suctioned and the baby was placed on the mother's belly. Once cord pulsations stopped the cord was clamped and cut. The placenta delivered spontaneously intact with membranes and was discarded. The fundus was noted to be firm and well contracted. The vagina and cervix were inspected and no cervical or sulcal lacerations were noted. There was a first-degree vaginal laceration at about 7:00 and this was repaired with 3-0 Vicryl on an SH needle in a continuous interlocking fashion. Good reapproximation and hemostasis was noted. Baby girl, Sindhu born at 6:51 PM on 02/17/2020 with 8/9, weighing 7 pounds 3 ounces, 30 to 50 g, 19-1/2 inches long. Placenta was delivered spontaneously intact with membranes at 6:57 PM. Cotyledons were intact , centrally inserted umbilical cord with 3 vessels noted. Estimated blood loss 250 mL. Complications-none, both baby and mother were left to recovery in a stable condition -We discussed that a tubal ligation is a permanent procedure and that should she desire to have a reversal procedure the success rate of a reversal procedure is low. I also discussed the failure rate of tubal ligation is less than 1% and that should she find out she is after having the procedure, she needs to see an ROLL COATING MACHINE OPERATOR immediately as her risk of having an ectopic is higher. She also understands that the regret rate is higher when people to choose permanent sterilization at a younger age. We also discussed the other forms of reversible contraceptions including an IUD, patch, OCP, nexplanon, Depo-Provera. She understands that she has other options but she wants to have her tubes tied. We discussed the surgical procedure and the risks and benefits of surgery and a routine postoperative course, And all her and her 's questions were answered. -She states that if surgery can be done tomorrow she would like to have this don e in the morning however she really does not want to stay any later than tomorrow and if surgery cannot be done in the morning she would like to have surgery performed as an interval procedure. Coding Level of Care Code Acute Edge Inker for Pop Spence
[2020-02-18] MEDS: HYDROcodone-acetaminophen 5-325 mg Tablet PO (03:38)
[2020-02-18 05:10] VITALS: BP 125/87; PULSE 70; RESP 18; TEMP 36.6
--- NOTE | 2020-02-18 07:17 | ANE.PACU2 ---
Inpatient post-anesthesia follow up: Airway intact: Yes Vital signs: Temperature 97.8 F Pulse Rate 70 Respiratory Rate 18 Blood Pressure 125/87 Pulse Oximetry 98 Oxygen Delivery Me thod Room Air Oxygen Flow Rate Fraction of Inspir ed Oxygen Hydration adequate: Yes Nausea and vomiting: No Pain level: 1 Mental status: Baseline Additional Comments: No signs of infection at epidural site, no numbness/weakness of legs, denies headache
[2020-02-18 07:58] LABS: Hematocrit 31.9 % (37.0-47.0); Hemoglobin 10.3 g/dL (11.5-15.3); Mean Corpuscular HGB Conc 32.3 g/dL (30.0-36.0); Mean Corpuscular Hemoglobin 26.9 pg (28.0-34.0); Mean Corpuscular Volume 83.3 fL (81-99); Mean Platelet Volume 10.2 fL (7.4-10.4); Platelet Count 144 10^3/cmm (130-400); Red Blood Count 3.83 10^6/uL (4.1-5.3); Red Cell Distribution Width 12.8 % (12.1-15.1); White Blood Count 11.7 10^3/uL (4.0-10.0)
[2020-02-18] MEDS: prenatal vitamin Capsule 1 CAP PO (08:41)
[2020-02-18] MEDS: docusate sodium 100 mg Capsule PO ×2 (08:41→18:16)
[2020-02-18] MEDS: acetaminophen 325 mg Tablet 650 MG PO (08:41)
[2020-02-18 08:51] VITALS: BP 118/76; PULSE 70; RESP 18; TEMP 36.8
[2020-02-18 13:14] VITALS: BP 122/70; PULSE 78; RESP 18; TEMP 36.7
[2020-02-18 15:15] VITALS: BP 123/76; PULSE 70; RESP 18; TEMP 36.8
--- NOTE | 2020-02-18 18:32 | PM.PN ---
Subjective Subjective: Interval history: Ms. Leavitt is doing well. She just has some perineal soreness a but otherwise feels completely fine. Denies shortness of breath, chest pain, nausea, vomiting, fever, chills. She is tolerating regular diet and denies heavy vaginal bleeding. She is bottlefeeding her daughter and bonding well with her. She would like to stay until tomorrow and her daughter will be discharged. She is glad she is doing well. She continues to desire sterilization and would like to have this done as an interval procedure. OBJECTIVE/PHYSICAL EXAM: Gen.: No acute distress Heart: S1-S2 heard, regular rate and rhythm Lungs: Clear to auscultation bilaterally Abdomen: Soft, fundus firm below umbilicus Legs: No calf tenderness, no pedal edema. ASSESSMENT AND PLAN: 24-year-old 3 para 3003 status post vaginal delivery, day #1 -Doing well-bonding well with baby -P.o. pain medication and ambulation -Anticipate discharge tomorrow as she is doing well and needs 1 more day to stay with baby who was . -Anticipate interval sterilization Vitals/I&O/Wt Last Vital Signs Temp 98.2 F 02/18/20 15:15 Pulse 70 02/18/20 15:15 Resp 18 02/18/20 15:15 BP 123/76 02/18/20 15:15 Pulse Ox 98 02/17/20 13:01 02/18/20 02/18/20 02/18/20 06:59 14:59 22:59 Output Total 1000 / 1800 Balance -1000 / 775.717 Weight last 48 hrs Weight 189 lb Weight 189 lb Physical Exam Urinary Catheter Management^: De Guzman: Cath Placed During This Visit: yes, but has since been removed by the nurse Reason for Continuing Indwelling Catheter: Decision to DC Catheter Urinary Catheter Date of Insertion: 02/17/20 Urinary Catheter Time of Insertion: 12:45 Date Urinary Catheter Removed: 02/17/20 Time Urinary Catheter Discontinued: 18:42 Data : 02/18/20 07:30 Attestations Medical Necessity Statement*: Needs to stay to recover from delivery Coding Level of Care Code Acute Mechanical Engineering Technologist for Pop Spence
[2020-02-18 22:40] VITALS: BP 107/70; PULSE 65; RESP 15; TEMP 36.6; O2SAT 97
[2020-02-19] MEDS: HYDROcodone-acetaminophen 5-325 mg Tablet PO (02:18)
[2020-02-19 04:45] VITALS: BP 111/69; PULSE 70; RESP 16; TEMP 36.7; O2SAT 95
--- NOTE | 2020-02-19 07:05 | P.DS_ITS ---
Discharge Providers Date of Admission: 02/17/20 00:34 Date of Discharge: February 19, 2020 Attending Provider at Admission: Alex Louis MD Attending Provider at Discharge: Pito Hewitt Primary Care Provider: Pito Mcmanus MD Reason for Visit Reason for Visit: CONTRACTIONS Hospital Course Discharge Summary: PRE-DELIVERY DIAGNOSIS: 24-year-old 3 para 2-0-0-2 at 36 weeks and 4 days GBS unknown Active labor Depression on medication Desires permanent sterilization History of preeclampsia on aspirin POST-DELIVERY DIAGNOSIS: Vaginal delivery on 02/17/2020 Desires interval sterilization PROCEDURE: Vaginal delivery on 02/17/2020 ANESTHESIA: Epidural anesthesia DELIVERING PHYSICIAN: Pito Hewitt FACOG PRE-DELIVERY COURSE: Ms. Leavitt is a 24-year-old 3 para 2-0-0-2 at 36 weeks and 4 days gestation who presented to labor and delivery at 5 AM with reports of contraction. She was initially noted to be 3 cm, 50% and -3 station and had regular contractions. She received a single dose of terbutaline however contractions progressed despite medication and IV fluids and she became 5 cm, 80% and -2 station. Since she was already late decision was made to admit her for delivery. She was started on ampicillin for GBS prophylaxis for unknown GBS status and state. She had received a course of steroids and received a second single dose of steroids at about 3 PM on 02/17/2020. She was allowed to progress by herself initially and contractions which had been every 2 to 4 minutes had spaced out to every 5 to 7 minutes. Over the next 6 hours she made minimal cervical change and was 7 cm 70% and -2 station at 1 PM. Decision was made to start her on Pitocin which was titrated to a maximum of 13 mIU and with this she started to have regular contractions. Artificial rupture of membranes was performed at 5:43 PM with clear fluid at which point she was noted to be 6-7, 80% and 0 station. She made rapid cervical change and was fully dilated at 6:40 PM and had the urge to push. tracing thus far has been category 1. DELIVERY NOTE: She was set up in lithotomy position and was pushing effectively. She was noted to be +3 station and continued pushing well. The head delivered in JAMES position, nuchal cord x1 was present and was reduced over the head without any difficulty the shoulders and rest of the body followed with her next push. The baby's mouth and nose were suctioned and the baby was placed on the mother's belly. Once cord pulsations stopped the cord was clamped and cut. The placenta delivered spontaneously intact with membranes and was discarded. The fundus was noted to be firm and well contracted. The vagina and cervix were inspected and no cervical or sulcal lacerations were noted. There was a first-degree vaginal laceration at about 7:00 and this was repaired with 3-0 Vicryl on an SH needle in a continuous interlocking fashion. Good reapproximation and hemostasis was noted. Baby girl, Sindhu born at 6:51 PM on 02/17/2020 with 8/9, weighing 7 pounds 3 ounces, 30 to 50 g, 19-1/2 inches long. Placenta was delivered spontaneously intact with membranes at 6:57 PM. Cotyledons were intact , centrally inserted umbilical cord with 3 vessels noted. Estimated blood loss 250 mL. Complications-none, both baby and mother were left to recovery in a stable condition HOSPITAL COURSE: She underwent an uncomplicated vaginal delivery on 02/17/2020. She did well on day 0 and was ambulating well, tolerating regular diet, voiding freely, passing flatus. She was breast-feeding without difficulty and bonding well with her daughter. Pain was well-controlled with by mouth pain medication. She denied nausea, vomiting, fever, chills, shortness of breath, leg pain. She had moderate vaginal bleeding. On day #1 she continued to do well with stable vital signs and stable hemoglobin at 10.3. She continued to do well on day #2 without any new problems. She had no preeclamptic symptoms and minimal swelling.. She was discharged home on day 2 in a stable condition. Warning signs for endometritis, mastitis, DVT/PE, preeclampsia were reviewed with her. Post delivery activity restrictions were also reviewed with her at all her questions were answered to her satisfaction. Plans on having cleve rilization done for contraception--was unable to have sterilization because of COVID testing rules of the hospital. We will plan for 5-week appointment with tubal ligation laparoscopically with total salpingectomy at 6 weeks EXAM AT DISCHARGE: Gen.: No acute distress Heart: S1-S2 heard, regular rate and rhythm Lungs: Clear to auscultation bilaterally Abdomen: Soft, fundus firm below umbilicus Legs: No calf tenderness, no pedal edema. CONDITION AT DISCHARGE: Stable Physical Exam Urinary Catheter Management^: De Guzman: Cath Placed During This Visit: yes, but has since been removed by the nurse Reason for Continuing Indwelling Catheter: Decision to DC Catheter Urinary Catheter Date of Insertion: 02/17/20 Urinary Catheter Time of Insertion: 12:45 Date Urinary Catheter Removed: 02/17/20 Time Urinary Catheter Discontinued: 18:42 Discharge Data Data Completed and Pending: Labs from last 24 hours 02/18/20 07:30 WBC 11.7 H RBC 3.83 L Hgb 10.3 L Hct 31.9 L MCV 83.3 MCH 26.9 L MCHC 32.3 RDW 12.8 Plt Count 144 MPV 10.2 Vitals: Last Vital Signs Temp 98.1 F 02/19/20 04:45 Pulse 70 02/19/20 04:45 Resp 16 02/19/20 04:45 BP 111/69 02/19/20 04:45 Pulse Ox 95 02/19/20 04:45 Discharge Plan Discharge Patient Disposition: Home Condition: Stable Prescriptions: New docusate sodium 100 mg Capsule 100 mg PO BID PRN (Reason: constipation) Qty: 30 RF: 0 ibuprofen 800 mg tablet 800 mg PO Q8H Qty: 30 RF: 0 Continued prenat.vits,alfredito,nsc-dtmu-dcapw Tablet 1 tab PO DAILY RF: 0 fluoxetine [Prozac] 10 mg capsule 10 mg PO DAILY RF: 0 Discontinued aspirin 81 mg tablet,delayed release (DR/EC) 81 mg PO DAILY RF: 0 Discharge Orders: Discharge Order (Routine); Ordered 02/19/20 Ordered By: Pito Mcmanus Referrals: Pito Mcmanus MD [Primary Care Provider] - (5-week visit) Discharge Diet: Usual diet Activity Restrictions/Additional Instructions: Pelvic rest for 6 weeks, no heavy lifting for 6 weeks Discharge Attestations Time Spent in Discharge Care*: greater than 30 min Quality Metrics Clinical Quality Measures During this hospital stay, did patient experience: None Coding Level of Care Code Acute Copy Center Associate for Pop Spence
[2020-02-19] MEDS: prenatal vitamin Capsule 1 CAP PO (08:26)
[2020-02-19] MEDS: docusate sodium 100 mg Capsule PO (08:26)
[2020-02-19] MEDS: benzocaine-menthol 78 gm Canister 1 SPRAY TOPICAL (08:27)
[2020-02-19 10:03] VITALS: BP 122/78; PULSE 112; RESP 16; TEMP 36.8
[2020-02-19 10:17] VITALS: BP 122/78; PULSE 112; RESP 16; TEMP 36.8
== END 2020-02-19 10:10 | disposition home or self-care (01) | DRG 807 ==
LOC: OBGYN 08:16 → OPOB 08:18 → OBGYN 08:18
PROVIDERS: Admitting Provider Obstetrics & Gynecology; PCP Obstetrics & Gynecology; Visit Provider Obstetrics & Gynecology
DX: O60.14X0 Preterm labor third trimester with preterm delivery third trimester, not applicable or unspecified (principal); Z37.0 Single live birth; O99.344 Other mental disorders complicating childbirth; F41.9 Anxiety disorder, unspecified; O69.2XX0 Labor and delivery complicated by other cord entanglement, with compression, not applicable or unspecified; O70.0 First degree perineal laceration during delivery; Z3A.36 36 weeks gestation of pregnancy
CPT/HCPCS: 12345; 36415; 51702; 59025; 59409; 85025; 85027; 96372; 99211; J0290; J0702; J2795; J3105

== ENCOUNTER 2020-04-02 06:00 | Day surgery (SDC) | payer MEDICAID, SELFPAY ==
[2020-03-27 08:53] VITALS: BMI 30.8
[2020-03-27 09:56] LABS: Basophils % 0.3 %; Eosinophils # 0.1 10^3/uL (0.0-0.8); Eosinophils % 1.8 %; Hematocrit 41.7 % (37.0-47.0); Lymphocytes # 2.2 10^3/uL (0.8-4.8); Lymphocytes % 30.5 %; Mean Corpuscular HGB Conc 31.2 g/dL (30.0-36.0); Mean Corpuscular Hemoglobin 26.5 pg (28.0-34.0); Mean Corpuscular Volume 84.9 fL (81-99); Mean Platelet Volume 9.6 fL (7.4-10.4); Monocytes # 0.6 10^3/uL (0.2-0.9); Monocytes % 7.8 %; Neutrophils # 4.24 10^3/uL (1.8-7.7); Neutrophils % 59.5 %; Nucleated Red Blood Cells % 0 %; Platelet Count 224 10^3/cmm (130-400); Red Blood Count 4.91 10^6/uL (4.1-5.3); Red Cell Distribution Width 14.2 % (12.1-15.1); White Blood Count 7.1 10^3/uL (4.0-10.0)
--- NOTE | 2020-03-27 12:16 | P.ANESASSM_ITS ---
Pre-Anesthetic Assessment Pre-Anesthetic Assessment: Height/Weight: Height 1.6 m Weight 78.925 kg Preop Diagnosis: Desires sterilization Proposed Procedure: Operation Date: 04/02/20 07:00 Proposed Procedures p Laparoscopic Bilateral Salpingectomy 01303 Z30.9(Bilateral) - Pito Mariscal MD Was Beta Shira taken within 24 hours: N/A Social: Social History: No alcohol and No tobacco Exam: Pre-Anes Outpt Exam: alert, oriented x 3, clear to auscultation bilaterally and regular rate & rhythm Airway: Submandibular: WNL Cervical ROM: WNL MP: 1 History/ROS: No significant complaints Pulmonary: Pulmonary: None reported CV/HEM: CV/HEM: None reported : : None reported Hepatic: Hepatic: None reported GI: GI: None reported Metabolic: Metabolic: None reported Musc/skel: Musc/skel: None reported Neuropsych: Neuropsych: None reported Anesthetic Plan: ASA status: 1 PFSH Anesthesia PFSH: Medical History No pertinent past medical history Denies diabetes, asthma, seizures, hypertension, DVT/PE PMD: Mayela Goode Surgical History No history of previous surgery Family History Grandfather Diabetes maternal Cancer Maternal-liver Grandmother Diabetes maternal Mother Thyroid condition Sister Thyroid condition Family/Other Breast cancer Paternal aunt; diagnosed in late 30s Denies family history of Colon cancer Ovarian cancer Heart disease Hyperlipidemia Hypertension Uterine cancer Stroke Social History Smoking and tobacco status: never smoked Alcohol intake: never Female Reproductive History: Date of last menstrual period: 06/06/19 Data Anesthesia CBC & Chem 7: 03/27/20 09:21 Other Labs: Laboratory Results - last 48 hr 03/27/20 09:21 WBC 7.1 RBC 4.91 Hgb 13.0 Hct 41.7 MCV 84.9 MCH 26.5 L MCHC 31.2 RDW 14.2 Plt Count 224 MPV 9.6 Neut % (Auto) 59.5 Lymph % (Auto) 30.5 Cannon % (Auto) 7.8 Eos % (Auto) 1.8 Baso % (Auto) 0.3 Neut # (Auto) 4.24 Lymph # (Auto) 2.2 Cannon # (Auto) 0.6 Eos # (Auto) 0.1 Baso # (Auto) 0.0 Nucleated RBC % (auto) 0 Nucleated RBCs # 0.0 Cardiac Studies: No Data to Display
[2020-03-28 17:08] LABS: Coronavirus Lab Test PTC Negative
[2020-04-02] VITALS (12 sets, daily range): BP systolic 100–127; BP diastolic 58–86; PULSE 53–92; RESP 16–20; TEMP 36.4–37.1; O2SAT 95–100
[2020-04-02] MEDS: sodium chloride 0.9% 500 ML IV (06:36)
--- NOTE | 2020-04-02 06:40 | P.ANESUD_ITS ---
Pre-Anesthetic Update Pre-Anesthetic Assessment: Date of Surgery/Procedure: 04/02/20 Preop Crystal gnosis: Desires sterilization Proposed Procedure: Operation Date: 04/02/20 07:00 Proposed Procedures p Laparoscopic Bilateral Salpingectomy 28933 Z30.9(Bilateral) - Pito Mariscal MD Any changes to Pre-Anesthetic Assessment?: No Last Intake: Intake Last Liquid Date 04/01/20 Last Liquid Time 22:00 Last Solid Date 04/01/20 Last Solid Time 20:00 Vitals: Oxygen Delivery Me thod 04/02/20 06:34 Exam: Pre-Anes Outpt Exam: alert, oriented x 3, clear to auscultation bilaterally and regular rate & rhythm Cardiac Studies: No Data to Display
[2020-04-02] MEDS: sodium chloride 0.9% 1,000 ML 30 ML IV (06:43)
--- NOTE | 2020-04-02 06:58 | W.PM.OPSUD ---
Surgery/Procedure H&P Update DATE OF PROCEDURE: April 02, 2020 DATE H&P PERFORMED: 03/24/20 H&P UPDATE INFORMATION: I have reviewed H&P completed within last 30 days, I have examined patient prior to procedure, No changes to prior documentation and H&P is in [facility] EMR on date indicated PREOP DIAGNOSIS: Desires sterilization PLANNED PROCEDURE: Operation Date: 04/02/20 07:00 Proposed Procedures p Laparoscopic Bilateral Salpingectomy 78626 Z30.9(Bilateral) - Pito Mcmanus MD
[2020-04-02 07:03] LABS: OR HCG Qualitative Urine Negative (Negative)
--- NOTE | 2020-04-02 08:24 | SUR.PHASEI ---
PT CONTINUES TO SLEEP WITH GOOD RESP EFFORT, NO DISTRESS NOTED. ORAL AIRWAY IN PLACE ABD SOFT WITH 3 SITES D/I
--- NOTE | 2020-04-02 08:26 | PM.OP ---
Operative Report Date of procedure: April 02, 2020 OPERATIVE REPORT Date of surgery: 04/02/2020 Date of dictation: 04/02/2020 Preoperative diagnosis: Multiparity desiring sterilization Postoperative diagnosis/findings: Same, 6 weeks size anteverted uterus, mobile, nontender, and laparoscopies, no trauma at site of entry, normal tubes and ovaries bilaterally, no other obvious pathology, Procedure done: Laparoscopic bilateral total salpingectomy for sterilization Specimens removed/disposition of specimens: Right and left fallopian tubes with right tube tagged sent to pathology Surgeon: Dr. Pito Hewitt office manager executive assistant: Yennifer Shannon Anesthesia: General endotracheal tube anesthesia Estimated blood loss: Less than 25 ml Intravenous fluids: 1000 mL of LR Urine output: 50 mL of clear urine at the end of procedure Medications: As per anesthesia records Complications: None, patient was extubated and taken to the recovery room in a stable condition PROCEDURE: After consents were signed patient was taken to the operating room where she was placed under general anesthesia without any difficulty. She was placed supine on the table in the lithotomy position. Exam under anesthesia revealed findings noted above. She was then prepped and draped in usual sterile fashion. Weighted speculum and anterior wall retractors were placed in the vagina, cervix visualized and grasped with a tenaculum. ZUMI uterine manipulator was placed into the uterus without any difficulty. Catheter was placed, instruments were removed from the vagina and the legs were lowered. Attention was turned towards the abdomen where half percent Marcaine with epinephrine was injected in to her umbilicus. A 10 mm skin incision was made and a 10 mm Prieto port was placed through the umbilicus using an open technique--- fascia was identified and tented up with Adelaida clamps and directly incised using curved Mayos. Peritoneum was then bluntly entered digitally and palpation revealed no adhesions around site of entry. Prieto trocar was then attached to the fascia and inflated.. Once intra-abdominal entry was confirmed gas was turned on and intra-abdominal opening pressure was 2. The abdomen is insufflated to the pressure was 14. Survey of the abdomen revealed normal anatomy-noted above. Two 5 mm trocar was placed into the left and right lower quadrant under direct visualization after injecting Marcaine. The Voyant device was used to clamp, cauterize and then cut the mesosalpinx under the fallopian tube starting at the fimbriated end and moving towards the uterus. This was done in a sequential fashion in such a way that the entire fallopian tube was from the sidewall and the uterus. The small cornual stump was cauterized as well. This was done first on the right side and then the left side without any difficulty. The right and left fallopian tubes were taken out without any difficulty. No bleeding was noted at sites of surgery. Trochars were removed under direct visualization. All instruments removed from the abdomen and the abdomen was desufflated. The fascia on the umbilical port was closed with 0 Vicryl in a continuous fashion and good reapproximation was obtained-care was taken to tent up the fascia throughout the closure. The skin incisions was closed with 4-0 Monocryl in a subcuticular fashion good reapproximation and hemostasis was noted. The incisions were dressed with Steri-Strips Telfa and Tegaderm. The ZUMI and De Guzman catheter were removed and good hemostasis was noted. The patient was extubated without any difficulty and taken to the recovery room in a stable condition. FOLLOW UP: Follow-up in 2 weeks and 6 weeks with surgeon MEDICATION ON DISCHARGE: Colace 100 mg by mouth every 12 hours when necessary constipation, 30 tablets, no refills Ibuprofen 800 mg by mouth every 8 hours when necessary pain, 60 tablets, no refills. [place] 5/325 mg 1 tablet by mouth every 6 hours when necessary pain,25 tablets, no refills Continue other home medication DISPOSITION: Home in a stable condition Pre-op Diagnosis: Desires sterilization
[2020-04-02] MEDS: meperidine 50 mg/mL INJ 12.5 MG IVP (08:37)
--- NOTE | 2020-04-02 08:43 | SUR.PHASEI ---
0837 PT AWAKE ON RA WARM BLANKETS X 2 TO PT PT NOW SHIVERING UNCONTROLLED SEE MED GIVEN PT HAS PAIN WITH SHIVERING
[2020-04-02] MEDS: HYDROcodone-acetaminophen 5-325 mg Tablet 1 TAB PO (09:16)
--- NOTE | 2020-04-02 09:59 | ANE.PACU2 ---
Inpatient post-anesthesia follow up: Airway intact: Yes Vital signs: Temperature 97.6 F Pulse Rate 55 Respiratory Rate 18 Blood Pressure 110/70 Pulse Oximetry 100 Oxygen Delivery Me thod Room Air Oxygen Flow Rate 8 Fraction of Inspir ed Oxygen Hydration adequate: Yes Nausea and vomiting: No Pain level: 1 Mental status: Baseline
== END 2020-04-02 10:20 | disposition home or self-care (01) ==
PROVIDERS: Anesthesiology; PCP Obstetrics & Gynecology; Visit Provider Obstetrics & Gynecology
PROC: (CPT 58661; principal; 2020-04-02 07:00)
DX: Z30.2 Encounter for sterilization (principal)
CPT/HCPCS: 58661; 12345; 36415; 81025; 84703; 85025; 86850; 86900; 87635; 88302; 96365; J1100; J2175; J2250; J2405; J2704; J3010; J3490; J7030; J7040

== ENCOUNTER 2021-09-16 19:25 | Emergency (ER) | payer BC, MEDICAID, SELFPAY ==
[2021-09-16 19:30] VITALS: BP 129/90; PULSE 69; RESP 16; TEMP 36.7; O2SAT 99; BMI 33.5
--- NOTE | 2021-09-16 19:35 | XRR_ITS ---
PROCEDURE INFORMATION: Exam: XR Chest Exam date and time: 09/16/2021 7:43 PM Age: 25 years old Clinical indication: Angina; Patient HX: Chest pain off and on and since yesterday; Additional info: Cp TECHNIQUE: Imaging protocol: XR of the chest. Views: 1 view. COMPARISON: CT abdomen pelvis w con* [id number] 03/31/2019 10:36 PM FINDINGS: Lungs: Lungs are clear bilaterally. Pleural spaces: No pleural effusion. No pneumothorax. Heart/Mediastinum: The cardiac silhouette and mediastinal contours are unremarkable. Bones/joints: Unremarkable for age. XR/XR chest 1V portable [id number] IMPRESSION: No acute cardiopulmonary process.
--- NOTE | 2021-09-16 19:35 | ECG_ITS ---
[facility] Test Date: 2021-09-16 Pat Name: Elda Leavitt Department: Room: Gender: Female Director Search Marketing Strategies: : 1995 Requested By: Sharri Bellamy Order Number: [id number] John MD: Janny Wu M.D. Measurements Intervals [place] Rate: 80 P: 55 UT: 116 QRS: 67 QRSD: 87 T: 23 QT: 383 QTc: 442 Interpretive Statements SINUS RHYTHM WITH SINUS ARRHYTHMIA WITH SHORT UT INTERVAL No previous ECG available for comparison Electronically Signed On 09-17-2021 10:59:21 CDT by Janny Wu M.D. [id number]
--- NOTE | 2021-09-16 19:44 | ED_ITS ---
HPI - Chest Pain General: Chief Complaint: Chest Pain Stated Complaint: dizziness Time Seen by Provider: 09/16/21 19:29 Source: patient Mode of arrival: ambulatory Limitations: no limitations History of Present Illness: 25-year-old female states that over the last 2 days she has been having some chest pains along with some dizziness. She states that her pains have been a sharp pain in the center of her chest been going on for 2 days its been constant nature. States the dizziness has been over the same time but she feels like the room is spinning. States this dizziness is made much worse with sudden movements or walking is improved with laying down. Denies any shortness of breath denies any recent illness denies any fever denies any vomiting. Associated symptoms: Deny abdominal pain, dyspnea, fever(s), nausea or vomiting Review of Systems Const: Denies: fever(s), chills, body aches or change in appetite Eyes: Denies: blurry vision or eye discomfort ENMT: Denies: throat pain or dental pain Card: Reports: chest pain Resp: Denies: dyspnea GI: Denies: abdominal pain, nausea, vomiting or diarrhea : Denies: dysuria Musc: Denies: neck pain or back pain Skin/Breast: Denies: rash Neuro: Reports: dizziness Psych: Denies: depression Amrik/Lymph: Denies: easy bruising All/Imm: Denies: urticaria PFSH ED PFSH: Medical History (Updated 09/16/21 @ 21:03 by Sharri Bellamy MD) No pertinent past medical history Denies diabetes, asthma, seizures, hypertension, DVT/PE PMD: Mayela Goode Surgical History (Updated 05/12/20 @ 16:43 by Pito Mcmanus MD) Status post tubal ligation 04/02/2020---laparoscopic bilateral total salpingectomy for sterilization performed by Dr. Hewitt [place] [facility] [place] Pathology showed no histological changes. No pathology identified on laparoscopy Family History Grandfather Diabetes maternal Cancer Maternal-liver Grandmother Diabetes maternal Mother Thyroid condition Sister Thyroid condition Family/Other Breast cancer Paternal aunt; diagnosed in late 30s Denies family history of Colon cancer Ovarian cancer Heart disease Hyperlipidemia Hypertension Uterine cancer Stroke Social History Smoking and tobacco status: never smoked Alcohol intake: never Female Reproductive History: Date of last menstrual period: 06/06/19 Physical Exam Const: COMMON NORMALS: no acute distress, patient oriented x3 and healthy appearing HENMT: COMMON NORMALS: normocephalic and atraumatic HEAD & SCALP: normocephalic and atraumatic Eye: COMMON NORMALS: Equal, round and reactive pupils present and EOMs intact bilaterally PUPIL: Yes Equal, round and reactive pupils present Neck/C-Spine: COMMON NORMALS: full ROM and supple Chest: COMMONS NORMALS: normal inspection of the chest and normal palpation of entire chest wall Resp: COMMON NORMALS: normal respiratory effort, No retractions, No use of accessory muscles and clear to auscultation bilaterally AUSCULTATION: clear to auscultation bilaterally Cardio: COMMON NORMALS: regular rate, regular rhythm and No murmurs present (Cardio) RATE: regular rate RHYTHM: regular rhythm GI: COMMON NORMALS: Normal to inspection, nondistended, normoactive bowel sounds present, Soft to palpation, non-tender and no masses PALPATION: Yes Soft to palpation Extremity: COMMON NORMALS: normal to inspection and full ROM Neuro: COMMON NORMALS: patient oriented x3, moves all extremities and no focal motor deficits Psych: COMMON NORMALS: mental status grossly normal, Normal thought process present and cooperative THOUGHT PROCESS: Normal thought process present Skin: COMMON NORMALS: no rashes or lesions noted and no wounds GENERAL SKIN EXAM: no rashes or lesions noted Course Vital Signs: Vital signs: Vital Signs Temperature 98.1 F 09/16/21 19:30 Pulse Rate 69 09/16/21 19:30 Respiratory Rate 16 09/16/21 19:30 Blood Pressure 129/90 09/16/21 19:30 Pulse Oximetry 99 09/16/21 19:30 MDM - Chest Pain Medical Decision Making Patient presents here with chest pain atypical in nature her troponin EKG and x- ray here are normal. Vertigo is likely peripheral in nature no signs of a stroke she does feel improved here after meclizine and some Ativan. She has no signs of pulmonary embolism or dissection will prescribe meclizine for home she is to follow-up with PCP and return if worsening. Lab Data : 09/16/21 19:45 09/16/21 20:10 Radiology Impressions Chest X-Ray 09/16/21 19:35 IMPRESSION: No acute cardiopulmonary process. Laboratory Results WBC 6.8 10^3/uL (4.0-10.0) 09/16/21 19:45 RBC 4.83 10^6/uL (4.1-5.3) 09/16/21 19:45 Hgb 14.4 g/dL (11.5-15.3) 09/16/21 19:45 Hct 42.9 % (37.0-47.0) 09/16/21 19:45 MCV 88.8 fl (81-99) 09/16/21 19:45 MCH 29.8 pg (28.0-34.0) 09/16/21 19:45 MCHC 33.6 g/dL (30.0-36.0) 09/16/21 19:45 RDW 12.1 % (12.1-15.1) 09/16/21 19:45 Plt Count 221 10^3/cmm (130-400) 09/16/21 19:45 MPV 9.8 fL (7.4-10.4) 09/16/21 19:45 Neut % (Auto) 56.2 % 09/16/21 19:45 Lymph % (Auto) 31.2 % 09/16/21 19:45 Isabella % (Auto) 10.7 % 09/16/21 19:45 Eos % (Auto) 1.5 % 09/16/21 19:45 Baso % (Auto) 0.1 % 09/16/21 19:45 Neut # (Auto) 3.82 10^3/uL (1.8-7.7) 09/16/21 19:45 Lymph # (Auto) 2.1 10^3/uL (0.8-4.8) 09/16/21 19:45 Isabella # (Auto) 0.7 10^3/uL (0.2-0.9) 09/16/21 19:45 Eos # (Auto) 0.1 10^3/uL (0.0-0.8) 09/16/21 19:45 Baso # (Auto) 0.0 10^3/uL (0.0-0.1) 09/16/21 19:45 Nucleated RBC % (auto) 0 % 09/16/21 19:45 Nucleated RBCs # 0.0 /100WBC 09/16/21 19:45 Sodium 141 mmol/L (136-145) 09/16/21 20:10 Potassium 3.6 mmol/L (3.5-5.1) 09/16/21 20:10 Chloride 107 mmol/L (98-107) 09/16/21 20:10 Carbon Dioxide 24 mmol/L (22-29) 09/16/21 20:10 Anion Gap 13.6 (5-19) 09/16/21 20:10 BUN 10 mg/dL (6-20) 09/16/21 20:10 Creatinine 0.8 mg/dL (0.5-0.9) 09/16/21 20:10 GFR Calculation 88.9 mL/min (90-130) L 09/16/21 20:10 Glucose 99 mg/dL (65-115) 09/16/21 20:10 Calculated Osmolality 291 mOsm/kg (285-295) 09/16/21 20:10 Calcium 8.7 mg/dL (8.5-10.5) 09/16/21 20:10 Total Bilirubin 0.3 mg/dL (0.15-1.2) 09/16/21 20:10 AST 14 U/L (0-32) 09/16/21 20:10 ALT 11 U/L (0-33) 09/16/21 20:10 Alkaline Phosphatase 64 IU/L (35-105) 09/16/21 20:10 Troponin T Baseline 6 ng/L (0-10) 09/16/21 19:45 Total Protein 6.7 g/dL (6.6-8.7) 09/16/21 20:10 Albumin 4.2 g/dL (3.5-5.2) 09/16/21 20:10 Globulin 2.5 g/dL (1.3-4.6) 09/16/21 20:10 EKG Data EKG 1: I personally reviewed and interpreted this EKG as follows: EKG interpretation date: 09/16/21 EKG interpretation time: 19:36 Interpretation: nsr hr [address] or t wave abnormalities qrs 87 qtc 418 Discharge Plan Discharge Patient Disposition: Home Clinical Impression: Chest pain, Vertigo Condition: Stable Prescriptions: New meclizine 25 mg tablet 25 mg PO BID PRN (Reason: dizziness) Qty: 20 0RF Discharge Orders: Discharge ED (Routine); Ordered 09/16/21 Ordered By: Sharri Bellamy Referrals: Pito Mcmanus MD [Primary Care Provider] - Discharge Diet: Advance as tolerated Discharge Activity: Resume usual activity Patient Instructions: Chest Pain (ED), Vertigo (ED) Coding Level of Care Code ED Regional Sales Representative for Chg Fwd Exam Comprehensive
[2021-09-16] MEDS: meclizine 25 mg tablet 50 MG PO (19:51)
[2021-09-16] MEDS: sodium chloride 0.9% 1,000 ML 999 ML IV ×2 (19:51)
[2021-09-16 20:00] LABS: Basophils % 0.1 %; Eosinophils # 0.1 10^3/uL (0.0-0.8); Eosinophils % 1.5 %; Hematocrit 42.9 % (37.0-47.0); Hemoglobin 14.4 g/dL (11.5-15.3); Lymphocytes # 2.1 10^3/uL (0.8-4.8); Lymphocytes % 31.2 %; Mean Corpuscular HGB Conc 33.6 g/dL (30.0-36.0); Mean Corpuscular Hemoglobin 29.8 pg (28.0-34.0); Mean Corpuscular Volume 88.8 fl (81-99); Mean Platelet Volume 9.8 fL (7.4-10.4); Monocytes # 0.7 10^3/uL (0.2-0.9); Monocytes % 10.7 %; Neutrophils # 3.82 10^3/uL (1.8-7.7); Neutrophils % 56.2 %; Nucleated Red Blood Cells % 0 %; Platelet Count 221 10^3/cmm (130-400); Red Blood Count 4.83 10^6/uL (4.1-5.3); Red Cell Distribution Width 12.1 % (12.1-15.1); White Blood Count 6.8 10^3/uL (4.0-10.0)
[2021-09-16 20:13] LABS: Troponin(5th) Baseline 6 ng/L (0-10)
[2021-09-16 20:37] LABS: Alanine Aminotransferase 11 U/L (0-33); Albumin Level 4.2 g/dL (3.5-5.2); Alkaline Phosphatase 64 IU/L (35-105); Anion Gap 13.6 (5-19); Aspartate Amino Transferase 14 U/L (0-32); Blood Urea Nitrogen 10 mg/dL (6-20); Calcium 8.7 mg/dL (8.5-10.5); Carbon Dioxide 24 mmol/L (22-29); Chloride 107 mmol/L (98-107); Globulin 2.5 g/dL (1.3-4.6); Glomerular Filtration Rate 88.9 mL/min (90-130); Glucose 99 mg/dL (65-115); Osmolality Calculated 291 mOsm/kg (285-295); Potassium 3.6 mmol/L (3.5-5.1); Sodium 141 mmol/L (136-145); Total Bilirubin 0.3 mg/dL (0.15-1.2); Total Protein 6.7 g/dL (6.6-8.7)
[2021-09-16] MEDS: LORazepam 2 mg/mL INJ 1 mL 1 MG IVP (20:53)
[2021-09-16 21:18] VITALS: BP 120/86; PULSE 83; RESP 16; O2SAT 95
== END 2021-09-16 21:19 | disposition home or self-care (01) ==
PROVIDERS: Emergency Provider Emergency Medicine; PCP Obstetrics & Gynecology
DX: R07.89 Other chest pain (principal); R42 Dizziness and giddiness
CPT/HCPCS: 71045; 80053; 84484; 85025; 93005; 96361; 96374; 99283; J2060; J7030; J8597

== ENCOUNTER 2022-01-04 20:19 | Emergency (ER) | payer OTHER, SELFPAY ==
[2022-01-04 20:31] VITALS: BP 130/81; PULSE 89; RESP 18; TEMP 36.6; O2SAT 98; BMI 29.2
--- NOTE | 2022-01-04 20:35 | ED_ITS ---
HPI - General Adult General: Chief complaint: General Medical Stated complaint: Stuck with Needle In Lab Time Seen by Provider: 01/04/22 20:35 History of Present Illness: 26-year-old female comes in with needlestick injury. Patient had drawn blood on the patient and accidentally stuck herself in the posterior left thumb. No serious injuries noted. Patient reports tetanus shot is up-to-date. Review of Systems General: Reports: 10 or more systems reviewed and unremarkable except in HPI and below PFSH ED PFSH: Medical History (Updated 09/24/21 @ 00:00 by ) No pertinent past medical history Denies diabetes, asthma, seizures, hypertension, DVT/PE PMD: Mayela Goode Surgical History (Updated 05/12/20 @ 16:43 by Pito Mcmanus MD) Status post tubal ligation 04/02/2020---laparoscopic bilateral total salpingectomy for sterilization performed by Dr. Hewitt at [facility] [place]. Pathology showed no histological changes. No pathology identified on laparoscopy Family History Grandfather Diabetes maternal Cancer Maternal-liver Grandmother Diabetes maternal Mother Thyroid condition Sister Thyroid condition Family/Other Breast cancer Paternal aunt; diagnosed in late 30s Denies family history of Colon cancer Ovarian cancer Heart disease Hyperlipidemia Hypertension Uterine cancer Stroke Social History Smoking and tobacco status: never smoked Alcohol intake: never Female Reproductive History: Date of last menstrual period: 06/06/19 Physical Exam Const: COMMON NORMALS: alert Neck/C-Spine: COMMON NORMALS: full ROM Resp: COMMON NORMALS: normal respiratory effort Cardio: COMMON NORMALS: regular rate RATE: regular rate Back/Pelvis: COMMON NORMALS: thoracic and lumbar spine normal to inspection Extremity: LEFT UPPER EXTREMITY: Yes hand & digits (Puncture wound to the posterior thumb, normal range of motion) Left hand and digits: Yes inspection, Yes palpation and Yes ROM Neuro: SENSORIUM/ORIENTATION: Yes alert Skin: NARRATIVE SKIN EXAM: Superficial puncture wound to left thumb TRAUMA: puncture Course Vital Signs: Vital signs: Vital Signs Temperature 97.8 F 01/04/22 20:31 Pulse Rate 89 01/04/22 20:31 Respiratory Rate 18 01/04/22 20:31 Blood Pressure 130/81 01/04/22 20:31 Pulse Oximetry 98 01/04/22 20:31 MDM - General Adult Medical Decision Making Patient comes in today for a needlestick injury. On exam she has a puncture wound to the posterior left thumb. Normal range of motion. No tendon injury. Distal pulses and sensation intact. Vital signs normal. Differential diagnosis includes but not limited to needlestick, need for prophylaxis antibiotic, need for prophylaxis tetanus, postexposure prophylaxis treatment. Patient refused postexposure treatment for HIV at this time until results from patient labs. Patient reported tetanus was up-to-date. Reviewed exam and recommendations for monitoring for infection. Patient reported understanding agreed to plan. Discharge Plan Discharge Condition: Stable Prescriptions: No Action meclizine 25 mg tablet 25 mg PO BID PRN (Reason: dizziness) Qty: 20 0RF Referrals: Pito Mcmanus MD [Primary Care Provider] - Coding Level of Care Code ED Boiler House Inspector for Pop Spence
[2022-01-04 21:24] LABS: HIV 1 & 2 Antibody Non-Reactive (Non-Reactiv); HIV 1 & 2 Antigen Non-Reactive (Non-Reactiv)
[2022-01-04 23:13] LABS: Hepatitis A Antibody IgM Non-Reactive (Nonreactive); Hepatitis B Core AB, Total Non-Reactive (Nonreactive); Hepatitis B Surface AB 5.8 (11.5-1000); Hepatitis B Surface Antigen Non-Reactive (Nonreactive); Hepatitis C Virus Antibody Non-Reactive (Nonreactive)
== END 2022-01-04 22:03 | disposition home or self-care (01) ==
PROVIDERS: Emergency Provider Nurse Practitioner Family; PCP Obstetrics & Gynecology
DX: S61.032A Puncture wound without foreign body of left thumb without damage to nail, initial encounter (principal); W46.1XXA Contact with contaminated hypodermic needle, initial encounter; Y99.0 Civilian activity done for income or pay
CPT/HCPCS: 86705; 86706; 86709; 86803; 87340; 87806; 99283

== ENCOUNTER 2022-01-22 10:43 | Emergency (ER) | payer BC, MEDICAID, SELFPAY ==
[2022-01-22 10:59] VITALS: BP 131/83; PULSE 92; RESP 18; TEMP 37.3; O2SAT 97; BMI 32.9
--- NOTE | 2022-01-22 11:13 | XRR_ITS ---
PROCEDURE INFORMATION: Exam: XR Chest Exam date and time: 01/22/2022 11:28 AM Age: 26 years old Clinical indication: Cough; Additional info: Covid symptoms, cough, body aches TECHNIQUE: Imaging protocol: Radiologic exam of the chest. Views: 1 view. COMPARISON: CR XR chest 1V portable [id number] 09/16/2021 7:43 PM FINDINGS: Lungs: Unremarkable. No consolidation. Pleural spaces: Unremarkable. No pleural effusion. No pneumothorax. Heart/Mediastinum: Unremarkable. No cardiomegaly. Bones/joints: Unremarkable. XR/XR chest 1V portable [id number] IMPRESSION: No acute findings.
--- NOTE | 2022-01-22 11:13 | ED_ITS ---
HPI - COVID General: Chief Complaint: COVID symptoms Stated Complaint: headache, body ache, possible covid Time Seen by Provider: 01/22/22 10:45 Source: patient Mode of arrival: ambulatory Limitations: no limitations Triage information: Has fever, cough or shortness of breath . Exposure to COVID + person last 14 days History of Present Illness: Patient is a 26-year-old female presents to ED today with a complaint of a headache, body aches, shortness of breath, cough, and a sore throat beginning yesterday. 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 Patient reports no previous PMH or any risk factors for severe progression. Her only medication includes citalopram. Denies chest pain. She arrives to ED in NAD with normal vital signs. MD complaint: reported COVID exposure and has COVID symptoms Prior covid testing: no COVID 19 common symptoms: positive non-productive cough, dyspnea, body aches and headache(s); negative fever(s), chills, fatigue or nasal congestion COVID 19 other sytmptoms: negative chest pain or dizziness Onset (ago): day(s) (yesterday) Severity: mild COVID Results: Nasal/Oral Coronavirus 2019 PCR Negative 03/27/20 09:20 SARS-CoV-2 (PCR) Pending 01/22/22 11:15 Coronavirus Type 229E (PCR) Pending 01/22/22 11:15 Review of Systems Const: Reports: body aches; Denies: fever(s), chills, fatigue or malaise ENMT: Reports: odynophagia; Denies: ear or mastoid pain, nasal discharge, nasal congestion, post nasal drip or sinus pain Card: Denies: chest pain Resp: Reports: dyspnea and non-productive cough; Denies: wheezing or hemoptysis GI: Denies: abdominal pain : Denies: flank pain, dysuria or hematuria Musc: Denies: neck pain, back pain, extremity pain or joint pain Skin/Breast: Denies: rash Neuro: Reports: headache(s); Denies: numbness in extremities, weakness in extremities, sensory changes or dizziness [facility] ED PFSH: Medical History No pertinent past medical history Denies diabetes, asthma, seizures, hypertension, DVT/PE PMD: Mayela Goode Surgical History Status post tubal ligation 04/02/2020---laparoscopic bilateral total salpingectomy for sterilization performed by Dr. Hewitt at [facility] [place]. Pathology showed no histological changes. No pathology identified on laparoscopy Family History Grandfather Diabetes maternal Cancer Maternal-liver Grandmother Diabetes maternal Mother Thyroid condition Sister Thyroid condition Family/Other Breast cancer Paternal aunt; diagnosed in late 30s Denies family history of Colon cancer Ovarian cancer Heart disease Hyperlipidemia Hypertension Uterine cancer Stroke Social History Smoking and tobacco status: never smoked Alcohol intake: never Female Reproductive History: Date of last menstrual period: 06/06/19 Physical Exam Const: COMMON NORMALS: no acute distress, patient oriented x3, no limitations, alert and well nourished GENERAL APPEARANCE: cooperative HENMT: COMMON NORMALS: normocephalic, atraumatic, external ears normal, EAC's normal and TM's normal bilaterally HEAD & SCALP: normal to inspection, normocephalic and atraumatic FACE & SINUS: normal facial exam EXTERNAL EAR: Yes external ears normal, Yes mastoids normal and Yes no periauricular adenopathy EXTERNAL AUDITORY CANAL: EAC's normal TYMPANIC MEMBRANE: TM's normal bilaterally MOUTH: Normal oral and palatal mucosa present, lip normal and tongue normal TEETH & GINGIVA: Yes fair dentition THROAT: posterior oropharynx normal, tonsils normal and uvula midline Eye: GENERAL EYE: appearance normal, both eyes and all related structures Neck/C-Spine: COMMON NORMALS: full ROM, no lymphadenopathy, supple and no meningeal signs Resp: COMMON NORMALS: normal respiratory effort and clear to auscultation bilaterally AUSCULTATION: clear to auscultation bilaterally Cardio: COMMON NORMALS: regular rate and regular rhythm RATE: regular rate RHYTHM: regular rhythm GI: COMMON NORMALS: Normal to inspection, nondistended, normoactive bowel sounds present, Soft to palpation, non-tender, No hepatosplenomegaly present and no masses PALPATION: Yes Soft to palpation and Yes No hepatosplenomegaly present : COMMON NORMALS: Yes no CVA tenderness BLADDER/KIDNEY EXAM: Yes no CVA tenderness Back/Pelvis: COMMON NORMALS: no CVA tenderness Extremity: COMMON NORMALS: normal to inspection GENERAL: Yes normal exam except as noted Neuro: JL COMA SCALE: document GCS findings [place] coma scale eye opening: Spontaneous Jl coma scale verbal response: Orientated Jl coma scale motor response: Obey commands Jl coma scale total score: 15 COMMON NORMALS: patient oriented x3, moves all extremities, no focal motor deficits and no sensory deficits noted SENSORIUM/ORIENTATION: Yes alert MENINGEAL SIGNS: Yes no meningeal signs Skin: COMMON NORMALS: no rashes or lesions noted GENERAL SKIN EXAM: no rashes or lesions noted Course Vital Signs: Vital signs: Vital Signs Temperature 99.1 F 01/22/22 10:59 Pulse Rate 92 01/22/22 10:59 Respiratory Rate 18 01/22/22 10:59 Blood Pressure 131/83 01/22/22 10:59 Pulse Oximetry 96 01/22/22 11:33 Oxygen Delivery Me thod 01/22/22 11:33 MDM - COVID Medical Decision Making CXR is normal. She has normal vital signs. She is satting normally on room air. Coronavirus PCR obtained. I do not see any indication for lab work at this time. Discussed quarantine precautions. If positive she can start treatment with Paxlovid if she wishes. Lab Data Radiology Impressions Chest X-Ray 01/22/22 11:13 IMPRESSION: No acute findings. Nasal/Oral Coronavirus 2019 PCR Negative 03/27/20 09:20 SARS-CoV-2 (PCR) Pending 01/22/22 11:15 Coronavirus Type 229E (PCR) Pending 01/22/22 11:15 Discharge Plan Discharge Patient Disposition: Home Clinical Impression: Suspected severe acute respiratory syndrome coronavirus 2 (SARS-CoV-2) infection, Suspected 2019-nCoV infection Condition: Stable Prescriptions: No Action meclizine 25 mg tablet 25 mg PO BID PRN (Reason: dizziness) Qty: 20 0RF Discharge Orders: Discharge ED (Routine); Ordered 01/22/22 Ordered By: Angela Nguyen Patient Instructions: COVID-19 (Coronavirus Disease 2019) (ED) Activity Restrictions/Additional Instructions: As we discussed you may call and get results of your coronavirus PCR testing later today. I can also try to contact you in regards to these results. If positive we can discuss treatment options. If positive you need to quarantine at home for a full 5 days and quarantine is not lifted until you are fever free for 24 hours without medications and symptoms are improving. Following the 5 days, quarantine is lifted but you need to continue wearing a tight fitting mask for another 5 days when you are around other individuals. Coding Level of Care Code ED Geography Professor for Pop Fwbradley Exam Comprehensive
[2022-01-22 11:33] VITALS: O2SAT 96
[2022-01-22 16:12] LABS: Adenovirus Not Detected (NOT DETECT); Chlamydia Pneumoniae Not Detected (NOT DETECT); Coronavirus 229E,HKU1,NL63,OC4 Not Detected (NOT DETECT); Human Metapneumovirus Not Detected (NOT DETECT); Human Rhinovirus/Enterovirus Not Detected (NOT DETECT); Influenza A Not Detected (NOT DETECT); Influenza A H1 Not Detected (NOT DETECT); Influenza A H1-2009 Not Detected (NOT DETECT); Influenza A H3 Not Detected (NOT DETECT); Influenza B Not Detected (NOT DETECT); Mycoplasma Pneumoniae Not Detected (NOT DETECT); Parainfluenza Virus Type 1 Not Detected (NOT DETECT); Parainfluenza Virus Type 2 Not Detected (NOT DETECT); Parainfluenza Virus Type 3 Not Detected (NOT DETECT); Parainfluenza Virus Type 4 Not Detected (NOT DETECT); Respiratory Syncytial Virus A Not Detected (NOT DETECT); Respiratory Syncytial Virus B Not Detected (NOT DETECT); SARS-COV-2 Not Detected (NOT DETECT)
== END 2022-01-22 12:00 | disposition home or self-care (01) ==
PROVIDERS: Emergency Provider Physician Assistant; PCP Obstetrics & Gynecology
DX: Z20.822 Contact with and (suspected) exposure to COVID-19 (principal)
CPT/HCPCS: 71045; 87635; 99283

== ENCOUNTER 2022-03-04 14:59 | Emergency (ER) | payer BC, MEDICAID, SELFPAY ==
[2022-03-04] VITALS (7 sets, daily range): BP systolic 98–129; BP diastolic 60–82; PULSE 56–85; RESP 16–61; TEMP 36.9; O2SAT 97–100
--- NOTE | 2022-03-04 15:13 | ECG_ITS ---
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 Measurements Intervals [place] Rate: 60 P: 37 UT: 128 QRS: 34 QRSD: 90 T: 17 QT: 445 QTc: 447 Interpretive Statements SINUS RHYTHM WITH MARKED SINUS ARRHYTHMIA No previous ECG available for comparison Electronically Signed On 03-05-2022 8:35:41 CDT by Janny Wu M.D. [email or web address]
[2022-03-04 16:23] LABS: Basophils % 0.2 %; Eosinophils # 0.1 10^3/uL (0.0-0.8); Eosinophils % 1.2 %; Hematocrit 42.5 % (37.0-47.0); Hemoglobin 14.2 g/dL (11.5-15.3); Lymphocytes % 36.2 %; Mean Corpuscular HGB Conc 33.4 g/dL (30.0-36.0); Mean Corpuscular Hemoglobin 29.6 pg (28.0-34.0); Mean Corpuscular Volume 88.7 fl (81-99); Mean Platelet Volume 9.8 fL (7.4-10.4); Monocytes # 0.7 10^3/uL (0.2-0.9); Monocytes % 8.3 %; Neutrophils # 4.49 10^3/uL (1.8-7.7); Nucleated Red Blood Cells % 0 %; Platelet Count 277 10^3/cmm (130-400); Red Blood Count 4.79 10^6/uL (4.1-5.3); Red Cell Distribution Width 12.6 % (12.1-15.1); White Blood Count 8.3 10^3/uL (4.0-10.0)
--- NOTE | 2022-03-04 17:55 | ED_ITS ---
HPI - General Adult General: Chief complaint: Arrhythmia/Palpitations Stated complaint: passed out, light headedness Time Seen by Provider: 03/04/22 17:50 History of Present Illness: Patient is a 26-year-old female with a history of recurrent syncope and lightheadedness presenting to the emergency room after an episode of syncope which occurred around 3:00. Patient is currently on a Holter monitor and followed by doctors at [place] for evaluation of her syncope. Tells me that earlier today around 3:00, she was working at [facility] [employer] [employer] when she felt short of breath and had chest pain and lightheadedness. Shortly after, patient passed out. Patient denies any injury and reported the episode was witnessed by several other people. Patient reported LOC and was found on the ground. Patient denied hitting her head according to witnesses. Patient noted on her apple watch that her lowest heart rate was in the 40s. Patient denies any fever/chills, cough, runny nose sore throat, dehydration, diarrhea melena or hematochezia. Patient has no family history of sudden cardiac . Onset: 3pm Duration:once Location:work Severity:moderate Associated symptoms: Deny chest pain, dyspnea, nausea, rash, palpitations or vo miting Review of Systems Const: Denies: fever(s) or chills Eyes: Denies: change in vision ENMT: Denies: mouth pain Card: Denies: chest pain or palpitations Resp: Denies: dyspnea or non-productive cough GI: Denies: abdominal pain, nausea, vomiting or diarrhea : Denies: dysuria Musc: Denies: extremity pain Skin/Breast: Denies: rash or new lesions Neuro: Reports: other (+syncope); Denies: weakness in extremities Psych: Reports: other (Normal mood) Amrik/Lymph: Denies: easy bruising PFSH ED PFSH: Medical History Syncope Social History Smoking and tobacco status: never smoked Alcohol intake: never Substance/Drug Use: never Physical Exam Const: COMMON NORMALS: alert HENMT: COMMON NORMALS: atraumatic HEAD & SCALP: atraumatic MOUTH: moist mucous membranes not abnormal Eye: COMMON NORMALS: EOMs intact bilaterally and conjunctivae normal CONJUNCTIVA: Yes conjunctivae normal Neck/C-Spine: COMMON NORMALS: full ROM and supple Resp: COMMON NORMALS: normal respiratory effort and clear to auscultation bilaterally AUSCULTATION: clear to auscultation bilaterally Cardio: COMMON NORMALS: regular rate RATE: regular rate GI: COMMON NORMALS: Soft to palpation and non-tender PALPATION: Yes Soft to palpation Extremity: COMMON NORMALS: full ROM Neuro: SENSORIUM/ORIENTATION: Yes alert MOTOR EXAM: No Abnormal motor strength present and Other motor observations present (no focal motor deficits) OTHER: Mental status? Awake, alert, and oriented to self, year, month, location, and situation.? Following simple axial and appendicular commands.? Has appropriate fund of knowledge, comprehension, and insight.? Able to recall and understands pertinent aspects of medical history and current treatment status.? ? Language? Speech is fluent without word-finding difficulties.? Intact naming, expression, veterinary medical officer, and repetition.? ? Cranial nerves? 2,3,4,6: PERRL, EOMI with no nystagmus. 5: Intact sensation to light touch, symmetric? 7: Smile symmetrical, no facial droop.? 8: Hearing grossly intact.? 9,10: Normal palate movement.? 11: Normal strength in trapezius bilaterally 12: Tongue protrudes midline.? ? Motor examination? Normal bulk & tone. Strength as follows (R/L): Delts (5/5), Biceps (5/5), Triceps (5/5), Wrist ext (5/5), hip flexors (5/5), plantarflexors (5/5), dorsiflexors (5/5). ? Sensation? Light Touch: Grossly intact and equal in upper and lower extremities bilaterally? Romberg: Negative.? Distal joint position sense intact ? Coordination? Lejbyn-ul-sewq-finger movements intact without dysmetria or past-pointing.? Rapid fingertaps: preserved amplitude without decriment.? No tremor, myoclonus or truncal ataxia.? ? Gait/stance? Steady, normal narrow base gait with appropriate arm swing and turning.? Tandem gait without hesitation or loss of balance. Psych: COMMON NORMALS: speech normal SPEECH: Yes normal speech MOOD & AFFECT: Yes euthymic mood Course Vital Signs: Vital signs: Vital Signs Temperature 98.5 F 09/16/22 15:14 Pulse Rate 85 03/04/22 21:04 Respiratory Rate 17 03/04/22 21:04 Blood Pressure 129/82 03/04/22 21:04 Pulse Oximetry 98 03/04/22 21:04 Oxygen Delivery Me thod 03/04/22 21:04 MDM - General Adult Medical Decision Making Patient is a 26-year-old female with a history of recurrent syncope and lightheadedness presenting to the emergency room after an episode of syncope which occurred around 3:00. She has a history of syncope. On physical exam, maribeth robles hemodynamically stable, without any focal findings. Neurologically patient is intact. Patient able to ambulate without difficulty. Lab work-up not show any signs of abnormality. EKG not showing any WPW, Brugada, hokum, or prolonged QTC. Patient was observed in the emergency room received IVF reports feeling symptomatically improved. We attempted to interrogate patient's Holter however I was unsuccessful as patient still has a device. I have instructed patient to return the device so that they can receive the tracing from today. Patient agrees to do so and follow-up closely with patient's doctor who ordered the holter monitor. It is, I have patient scheduled for cardiology follow-up should patient needed after patient obtains her holter results. I have given patient follow up with our pillowcase cleaner to be seen by our outpatient b Cardiology for syncope. Patient aware of a call from our pillowcase cleaner to schedule for appointment(s) and verbalizes understanding of the importance of following up. Disposition: Discharge. Patient counseled regarding diagnostic impression, tr eatment plan. Patient given ED strict return precautions to return for continuation, worsening, or development of new symptoms. Instructed to f/u w/ PCP regarding symptoms today. Patient verbalized understanding. Patient is given strict return precautions for any signs of recurrent syncope, or any new extreme complaints. Lab Data : 03/04/22 16:10 03/04/22 20:57 Laboratory Results WBC 8.3 10^3/uL (4.0-10.0) 03/04/22 16:10 RBC 4.79 10^6/uL (4.1-5.3) 03/04/22 16:10 Hgb 14.2 g/dL (11.5-15.3) 03/04/22 16:10 Hct 42.5 % (37.0-47.0) 03/04/22 16:10 MCV 88.7 fl (81-99) 03/04/22 16:10 MCH 29.6 pg (28.0-34.0) 03/04/22 16:10 MCHC 33.4 g/dL (30.0-36.0) 03/04/22 16:10 RDW 12.6 % (12.1-15.1) 03/04/22 16:10 Plt Count 277 10^3/cmm (130-400) 03/04/22 16:10 MPV 9.8 fL (7.4-10.4) 03/04/22 16:10 Neut % (Auto) 54.0 % 03/04/22 16:10 Lymph % (Auto) 36.2 % 03/04/22 16:10 [place] % (Auto) 8.3 % 03/04/22 16:10 Eos % (Auto) 1.2 % 03/04/22 16:10 Baso % (Auto) 0.2 % 03/04/22 16:10 Neut # (Auto) 4.49 10^3/uL (1.8-7.7) 03/04/22 16:10 Lymph # (Auto) 3.0 10^3/uL (0.8-4.8) 03/04/22 16:10 [place] # (Auto) 0.7 10^3/uL (0.2-0.9) 03/04/22 16:10 Eos # (Auto) 0.1 10^3/uL (0.0-0.8) 03/04/22 16:10 Baso # (Auto) 0.0 10^3/uL (0.0-0.1) 03/04/22 16:10 Nucleated RBC % (auto) 0 % 03/04/22 16:10 Nucleated RBCs # 0.0 /100WBC 03/04/22 16:10 Sodium 138 mmol/L (136-145) 03/04/22 20:57 Potassium 3.8 mmol/L (3.5-5.1) 03/04/22 20:57 Chloride 103 mmol/L (98-107) 03/04/22 20:57 Carbon Dioxide 24 mmol/L (22-29) 03/04/22 20:57 Anion Gap 14.8 (5-19) 03/04/22 20:57 BUN 9 mg/dL (6-20) 03/04/22 20:57 Creatinine 0.8 mg/dL (0.5-0.9) 03/04/22 20:57 GFR Calculation 88.1 mL/min (90-130) L 03/04/22 20:57 Glucose 95 mg/dL (65-115) 03/04/22 20:57 Calculated Osmolality 284 mOsm/kg (285-295) L 03/04/22 20:57 Calcium 9.2 mg/dL (8.5-10.5) 03/04/22 20:57 Troponin T Baseline 7 ng/L (0-10) 03/04/22 20:57 HCG, Qual Negative (Negative) 03/04/22 18:26 Discharge Plan Discharge Patient Disposition: Home Clinical Impression: Syncope and collapse Condition: Stable Discharge Orders: Discharge ED (Routine); Ordered 03/04/22 Ordered By: Arturo Powers Referrals: Bean Machado MD [Primary Care Provider] - Discharge Diet: Advance as tolerated Discharge Activity: Increase activity as tolerated Patient Instructions: Syncope (ED) Activity Restrictions/Additional Instructions: Please come back to the emergency room for any more breakthrough episodes of passing out. Come back if any weakness in her arms, drooling, difficulty speaking, any neurological symptoms, chest pain/shortness of breath/palpitation or any new or concerning issues. Please do not swim, bathe, operate heavy machinery or drive a vehicle unattended. Please do not swim, bathe, operate heavy machinery, or drive a vehicle unattended. Follow-up with your primary care doctor for evaluation of your syncope and please get your Holter monitor interrogated. Coding Level of Care Code ED Crossing Guard for Chg Fwd Exam Comprehensive
[2022-03-04 19:03] LABS: HCG, Serum Qual Negative (Negative)
--- NOTE | 2022-03-04 19:05 | PC.NURSE ---
report given to HOMA Jo
--- NOTE | 2022-03-04 19:28 | PC.NURSE ---
assumed care of patient at this time, report taken from messi carr.
--- NOTE | 2022-03-04 20:35 | PC.NURSE ---
nursing rounds performed, pt states i was told i would get fluids and that was at 4pm today . no order in MAR for fluids, will clarify with attending.
--- NOTE | 2022-03-04 20:39 | ECG_ITS ---
[facility] Test Date: 2022-03-04 Pat Name: Elda Lockett Department: Room: Gender: Female Obiee Report Developer: : 1995 Requested By: Arturo Powers Order Number: [id number] Lopez MD: Janny Wu M.D. Measurements Intervals [place] Rate: 52 P: 53 SC: 143 QRS: 62 QRSD: 93 T: 42 QT: 461 QTc: 430 Interpretive Statements SINUS BRADYCARDIA WITH SINUS ARRHYTHMIA Compared to ECG 03/04/2022 15:13:44 Sinus rhythm no longer present Electronically Signed On 03-05-2022 8:33:27 CDT by Janny Wu M.D. [id number]
[2022-03-04] MEDS: sodium chloride 0.9% 1,000 ML 999 ML IV (20:54)
[2022-03-04 21:27] LABS: Troponin(5th) Baseline 7 ng/L (0-10)
[2022-03-04 21:28] LABS: Anion Gap 14.8 (5-19); Blood Urea Nitrogen 9 mg/dL (6-20); Calcium 9.2 mg/dL (8.5-10.5); Carbon Dioxide 24 mmol/L (22-29); Chloride 103 mmol/L (98-107); Glomerular Filtration Rate 88.1 mL/min (90-130); Glucose 95 mg/dL (65-115); Osmolality Calculated 284 mOsm/kg (285-295); Potassium 3.8 mmol/L (3.5-5.1); Sodium 138 mmol/L (136-145)
--- NOTE | 2022-03-07 11:22 | DCPLANNER ---
Addendum entered by Argenis Mueller 03/08/22 07:54: manager asset management received the following message from the [facility] front office regarding follow up appointment: Called number listed - did not ring just stated call rejected and hung up * Attempted twice manager asset management attempted the phone number as well, recording stated call rejected. Unable to reach patient and unable to leave a voicemail. Original Note: manager asset management had message to schedule a follow up appointment for patient with cardiology. manager asset management sent patients information to the front office staff at [facility]. Patients information will be printed and reviewed. Clinic will call patient with appointment information.
== END 2022-03-04 21:58 | disposition home or self-care (01) ==
PROVIDERS: Emergency Medicine; Emergency Provider Emergency Medicine; PCP Family Medicine
DX: R55 Syncope and collapse (principal)
CPT/HCPCS: 80048; 84484; 84703; 85025; 93005; 96360; 99285; J7030

== ENCOUNTER 2022-05-30 08:18 | Outpatient (CLI) | payer BC, MEDICAID, SELFPAY ==
--- NOTE | 2022-05-30 08:45 | USCV_ITS ---
Elda Lockett Age: 26 Gender: F : 1995 Exam Date: 05/30/2022 08:29 Ordering Phys: Richard Pascual MD ([email or web address]) Technologist: Hope Traylor Exam Location: [facility] [place] Indication: CP and SOB BP: 120 / 83 HR: 59 Rhythm: Sinus Technical Quality: Adequate MEASUREMENTS (Male / Female) Normal Values 2D ECHO LV Diastolic Diameter PLAX 3.9 cm 4.2 - 5.9 / 3.9 - 5.3 cm LV Systolic Diameter PLAX 2.2 cm LV Chamber Size 3.8 cm IVS Diastolic Thickness 1.0 cm 0.6 - 1.0 / 0.6 - 0.9 cm IVS Systolic Thickness 1.3 cm LVPW Diastolic Thickness 1.2 cm 0.6 - 1.0 / 0.6 - 0.9 cm LVPW Systolic Thickness 1.3 cm RV Chamber Size 3.2 cm LVOT Diameter 2.0 cm LV Ejection Fraction 2D Teich 76.5 % LV Ejection Fraction MOD 2C 55.4 % LV Ejection Fraction 2C AL 55.8 % LA Diameter 2.9 cm LA Width 2.2 cm LA Height 3.9 cm RA Width 2.8 cm RA Height 4.0 cm Aorta at Sinotubular Diameter 2.5 cm IVC Diameter 1.4 cm M-MODE Aortic Annulus Diameter 2.8 cm LA Ao Ratio MM 1.2 MV E Point Septal Separation 0.3 cm DOPPLER AV Peak Velocity 110.0 cm/s LVOT Peak Velocity 86.0 cm/s AV Area Cont Eq vti 2.4 cm squared AV Area Cont Eq pk 2.6 cm squared MV Area PHT 3.4 cm squared Mitral E to A Ratio 1.8 MV E' Velocity 47.5 cm/s Mitral E to MV E' Ratio 4.9 Mitral E to LV E' Lateral Ratio 4.4 Mitral E to LV E' Septal Ratio 5.5 TR Peak Velocity 97.4 cm/s TR Peak Gradient 3.8 mmHg TR Mean Velocity 72.7 cm/s TR Mean Gradient 2.4 mmHg TR Velocity Time Integral 24.4 cm TV Peak E Velocity 67.0 cm/s Right Atrial Pressure 3.0 mmHg Pulmonary Artery Systolic Pressu 6.8 mmHg RV Acceleration Time 0.2 s RV Ejection Time 0.4 s RV AcT/ET 0.5 FINDINGS Left Ventricle Normal left ventricular size and systolic function, EF 55%. No regional wall motion abnormalities. Right Ventricle The right ventricle is normal in size and function. Right Atrium The right atrium is normal in size. Left Atrium The left atrium is normal in size. Mitral Valve No gross abnormalities noted Aortic Valve No gross abnormalities noted Tricuspid Valve Trace tricuspid valve regurgitation. Pulmonic Valve Pulmonic valve not well visualized. Pericardium Normal pericardium without effusion. Aorta Normal aortic annulus size. IVC Normal inferior vena cava. CONCLUSIONS Normal left ventricular size and systolic function, EF 55%. No regional wall motion abnormalities. Normal cardiac chamber sizes. No significant valvular abnormalities Trace tricuspid valve regurgitation. There is no pericardial effusion. There are no intracardiac masses. No similar previous studies are available for comparison Dr Richard Pascual MD FAC (Electronically Signed) Final Date: 30 May 2022 20:26 S
== END 2022-05-30 08:19 | disposition home or self-care (01) ==
LOC: RAD 08:19
PROVIDERS: Visit Provider Internal Medicine Cardiovascular Disease
DX: I07.1 Rheumatic tricuspid insufficiency (principal); R06.09 Other forms of dyspnea; R07.9 Chest pain, unspecified
CPT/HCPCS: 93306

== ENCOUNTER 2022-06-24 12:18 | Outpatient (CLI) | payer BC, MEDICAID, SELFPAY ==
--- NOTE | 2022-06-24 | ECG_ITS ---
[facility] Test Date: 2022-06-24 Pat Name: Elda Leavitt Department: Room: Gender: Female Maintenance Fitter: : 1995 Requested By: Richard Pascual Order Number: [id number] John MD: Richard Pascual M.D. Interpretive Statements NAME OF STUDY: TREADMILL STRESS TEST INDICATION: Chest Pain, PROCEDURE: At the baseline, the patient's blood pressure was 132/90 with a heart rate of 81. The baseline electrocardiogram showed normal sinus rhythm with normal ST-Ts. The patient exercised for 8 minutes and 59 seconds on a standard Jamie protocol. Patient attained a maximum heart rate of 180 beats per minute(91% of the maximum predicted heart rate) with a blood pressure at the peak exercise of 195/99 mm Hg. The EKG at the peak exercise revealed some nonspecific ST changes. Patient did not have any chest pain or any significant cardiac arrhythmias with the exercise. Patient was complaining of some shortness of breath with exertion During the recovery phase, there were no new changes. Blood pressure at the end of the recovery phase was 135/65 mm Hg with a heart rate of 98 per minute. CONCLUSION: 1. Non specific EKG changes of the treadmill exercise. 2. No exercise-induced chest pain or cardiac arrhythmia 3. Fair exercise tolerance, attained a maximum of 10.2 METs 4. Hypertensive response to exercise. 5. No significant coronary ischemia, based on the above finding Electronically Signed On 07-01-2022 11:35:29 DRAW STRING KNOTTER by Richard Pascual M.D. [email or web address]
[2022-06-24 12:47] VITALS: BMI 32.4
[2022-06-24 13:40] VITALS: BP 135/65; PULSE 89
== END 2022-06-24 12:19 | disposition home or self-care (01) ==
LOC: CDL 12:19
PROVIDERS: Visit Provider Internal Medicine Cardiovascular Disease
DX: R07.9 Chest pain, unspecified (principal)
CPT/HCPCS: 93017

== ENCOUNTER → 2022-10-12 07:59 | Outpatient (BNVA) | payer BC, MEDICAID, SELFPAY | PROVIDERS: Visit Provider Nurse Practitioner Family | DX: R07.9 Chest pain, unspecified (principal); Z20.822 Contact with and (suspected) exposure to COVID-19; R55 Syncope and collapse; J06.9 Acute upper respiratory infection, unspecified | CPT/HCPCS: 87426 ==

== ENCOUNTER → 2023-08-18 10:00 | Outpatient (BNVA) | payer BC, MEDICAID, SELFPAY | PROVIDERS: PCP Registered Nurse; Visit Provider Family Medicine Adult Medicine | DX: R68.89 Other general symptoms and signs (principal); J02.9 Acute pharyngitis, unspecified | CPT/HCPCS: 87400; 87880 ==

== ENCOUNTER → 2023-10-19 10:01 | Outpatient (BNVA) | payer BC, MEDICAID, SELFPAY | PROVIDERS: PCP Registered Nurse; Visit Provider Emergency Medicine | DX: J02.9 Acute pharyngitis, unspecified (principal); R68.89 Other general symptoms and signs; B34.9 Viral infection, unspecified | CPT/HCPCS: 87071; 87400; 87880 ==

== ENCOUNTER 2023-10-20 09:08 | Emergency (ER) | payer BC, MEDICAID, SELFPAY ==
[2023-10-20 09:43] VITALS: BP 147/84; PULSE 101; RESP 18; TEMP 37.8; O2SAT 99; BMI 35.4
[2023-10-20 10:07] LABS: Monoscreen Negative (Negative)
--- NOTE | 2023-10-20 10:59 | XR_ITS ---
WS: [id number] XR chest 1V portable [id number] REASON FOR EXAM: cough, fever FINDINGS: The chest appears unchanged compared to 01/22/2022. The heart and the mediastinum are within normal limits. The heart and mediastinum are within normal limits. Calcified granulomatous disease. No acute pulmonary parenchymal or pleural abnormality is identified. XR/XR chest 1V portable [id number] IMPRESSION: Stable chest without acute abnormality.
--- NOTE | 2023-10-20 11:00 | W.ED.GENADLT ---
HPI - General Adult General: Chief complaint: General Medical Stated complaint: fever, chills, sore throat Time Seen by Provider: 10/20/23 09:10 History of Present Illness: 27-year-old female who presents to the emergency room with upper respiratory symptoms. She says she has had some aching in her ears. Fevers. Malaise. Sore throat. Cough. She felt lightheaded and dizzy today. She was seen at an urgent care and they told her to take Tylenol. She said today she started having the dizziness and that is what prompted her to come to the emergency room. No altered mental status. No focal motor deficits. No chest pain. No abdominal pain. No nausea or vomiting. Review of Systems Narrative: Constitutional symptoms: Negative except as documented in HPI. Skin symptoms: Negative except as documented in HPI. Eye symptoms: Negative except as documented in HPI. ENMT symptoms: Negative except as documented in HPI. Respiratory symptoms: Negative except as documented in HPI. Cardiovascular symptoms: Negative except as documented in HPI. Gastrointestinal symptoms: Negative except as documented in HPI. Genitourinary symptoms: Negative except as documented in HPI. Musculoskeletal symptoms: Negative except as documented in HPI. Neurologic symptoms: Negative except as documented in HPI. Psychiatric symptoms: Negative except as documented in HPI. Endocrine symptoms: Negative except as documented in HPI. PFSH ED PFSH: Medical History Pharyngitis Shortness of breath URI with cough and congestion Chest pain Recurrent syncope Syncope No pertinent past medical history Denies diabetes, asthma, seizures, hypertension, DVT/PE PMD: Mayela Goode Surgical History Status post tubal ligation 04/02/2020---laparoscopic bilateral total salpingectomy for [place] [facility] [place] Pathology showed no histological changes. No pathology identified on laparoscopy Family History Grandfather Diabetes maternal Cancer Maternal-liver Grandmother Diabetes maternal Mother Thyroid disease Sister Thyroid disease Family/Other Breast cancer Paternal aunt; diagnosed in late 30s Family/Other Cancer Mother Cancer Grandfather Cancer Diabetes Grandmother Dementia Denies family history of Colon cancer Ovarian cancer CAD (coronary artery disease) Clotting disorder Heart disease Hyperlipidemia Chronic kidney disease (CKD) Suicide Anesthesia complication Bleeding disorder Lung disease Hypertension Uterine cancer Stroke Social History Smoking and tobacco/nicotine status: never used tobacco/nicotine Alcohol intake: never Substance/Drug Use: never Physical Exam Narrative: EXAM NARRATIVE: General: Alert, no acute distress. Skin: Warm, dry. Head: Normocephalic, atraumatic. Neck: Supple, trachea midline. Eye: Extraocular movements are intact. Ears, nose, mouth and throat: mucosa moist. Cardiovascular: Regular, slightly tachycardic, Normal peripheral perfusion. Respiratory: Lungs are clear to auscultation, respirations are non-labored, breath sounds are equal, Symmetrical chest wall expansion. Gastrointestinal: Soft, Nontender, Non distended, Normal bowel sounds. Musculoskeletal: Normal ROM, no deformity. Neurological: Alert and oriented, No focal neurological deficit observed. Psychiatric: Cooperative, appropriate mood & affect. Course Vital Signs: Vital signs: Vital Signs Temperature 100.1 F H 10/20/23 09:43 Pulse Rate 101 H 10/20/23 09:43 Respiratory Rate 18 10/20/23 09:43 Blood Pressure 147/84 10/20/23 09:43 Pulse Oximetry 99 10/20/23 09:43 Oxygen Delivery Me thod Room Air 10/20/23 09:43 MDM - General Adult Medical Decision Making Medical decision making: Differential diagnosis including but not limited to and based on the above HPI, review of systems and physical exam: Patient has an upper respiratory infection. Respiratory panel sent for viral causes. A chest x-ray was ordered to rule out pneumonia or other infiltrates. Basic lab work was obtained as well. Orders placed to evaluate differential diagnosis based on the above differential, HPI and physical exam Lab Review: Laboratory results were reviewed and interpreted by myself the emergency room physician. Patient has a white count of 11.4. Hemoglobin is 13.8. BUN and creatinine are 11 and 0.8. I reviewed the patient's medical record. Respiratory panel pending at discharge. Patient will call for results Reexamination: Patient says she feels somewhat better after Toradol and Decadron shots. No increased work of breathing. No altered mental status. No focal motor deficits. Assessment and plan: Upper respiratory illness Fever -IM Decadron and Toradol - Discharged home - Discussed plan with patient. Answered any questions. - Evaluation and treatment of this problem were appropriate in the emergency setting. Lab Data 10/20/23 09:44 10/20/23 09:44 Radiology Impressions Chest X-Ray 10/20/23 10:59 IMPRESSION: Stable chest without acute abnormality. Laboratory Results WBC 11.42 10^3/uL (3.29-11.43) 10/20/23 09:44 RBC 4.46 10^6/uL (3.85-5.65) 10/20/23 09:44 Hgb 13.80 g/dL (11.27-16.99) 10/20/23 09:44 Hct 39.7 % (36-47) 10/20/23 09:44 MCV 89.0 fl (85-98) 10/20/23 09:44 MCH 30.9 pg (27-33) 10/20/23 09:44 MCHC 34.8 g/dL (30-55) 10/20/23 09:44 RDW 12.0 % (12.1-15.1) L 10/20/23 09:44 Plt Count 181 10^3/cmm (157-399) 10/20/23 09:44 MPV 9.7 fL (7.4-10.4) 10/20/23 09:44 Neut % (Auto) 84.7 % 10/20/23 09:44 Lymph % (Auto) 8.1 % 10/20/23 09:44 [place] % (Auto) 6.4 % 10/20/23 09:44 Eos % (Auto) 0.1 % 10/20/23 09:44 Baso % (Auto) 0.3 % 10/20/23 09:44 Neut # (Auto) 9.68 10^3/uL (1.8-7.7) H 10/20/23 09:44 Lymph # (Auto) 0.9 10^3/uL (0.8-4.8) 10/20/23 09:44 [place] # (Auto) 0.7 10^3/uL (0.2-0.9) 10/20/23 09:44 Eos # (Auto) 0.0 10^3/uL (0.0-0.8) 10/20/23 09:44 Baso # (Auto) 0.0 10^3/uL (0.0-0.1) 10/20/23 09:44 Nucleated RBC % (auto) 0 % 10/20/23 09:44 Nucleated RBCs # 0.0 /100WBC 10/20/23 09:44 Sodium 135 mmol/L (136-145) L 10/20/23 09:44 Potassium 3.5 mmol/L (3.5-5.1) 10/20/23 09:44 Chloride 102 mmol/L (98-107) 10/20/23 09:44 Carbon Dioxide 19 mmol/L (22-29) L 10/20/23 09:44 Anion Gap 17.5 (5-19) 10/20/23 09:44 BUN 11 mg/dL (6-20) 10/20/23 09:44 Creatinine 0.8 mg/dL (0.5-0.9) 10/20/23 09:44 GFR Calculation 87.4 mL/min (90-130) L 10/20/23 09:44 Glucose 106 mg/dL (65-115) 10/20/23 09:44 Calculated Osmolality 280 mOsm/kg (285-295) L 10/20/23 09:44 Calcium 9.1 mg/dL (8.5-10.5) 10/20/23 09:44 Total Bilirubin 0.6 mg/dL (0.15-1.2) 10/20/23 09:44 AST 18 U/L (0-32) 10/20/23 09:44 ALT 16 U/L (0-33) 10/20/23 09:44 Alkaline Phosphatase 62 U/L (35-105) 10/20/23 09:44 C-Reactive Protein 184.1 mg/L (0.0-4.9) H 10/20/23 09:44 Total Protein 7.7 g/dL (6.6-8.7) 10/20/23 09:44 Albumin 4.2 g/dL (3.5-5.2) 10/20/23 09:44 Globulin 3.5 g/dL (1.3-4.6) 10/20/23 09:44 Monoscreen Negative (Negative) 10/20/23 09:44 Group A Strep Rapid Negative (Negative) 10/20/23 11:10 All radiology interpretation(s) finalized by discharge Discharge Plan Discharge Patient Disposition: Home Clinical Impression: URI with cough and congestion, Fever Condition: Stable Prescriptions: New Zithromax Z-Maximo 250 mg tablet See Rx Instructions .ROUTE .COMPLEX Qty: 6 0RF Rx Instructions: For 250 mg dose pack: take 500 mg today (day 1), then 250 mg for 4 days (days 2-5) dexamethasone 6 mg tablet 6 mg PO DAILY 5 Days Qty: 5 0RF No Action buspirone 5 mg tablet 5 mg PO TID fluoxetine 40 mg capsule 40 mg PO DAILY Discharge Orders: Discharge ED (Routine); Ordered 10/20/23 Ordered By: Deanna Fitzpatrick Referrals: Gia Hauser [Primary Care Provider] - (Please call for your respiratory panel results in a couple of hours. You have been screened and evaluated and felt safe for discharge. Health conditions do change or evolve sometimes and as such it is important that you follow up with your Primary Doctor to be re checked, 3-5 days is a general good time frame for follow up. You are always welcome to return to the ED for re assessment if your symptoms are worsening or you have new concerns) Discharge Diet: Usual diet Discharge Activity: Increase activity as tolerated Patient Instructions: Upper Respiratory Infection (ED) Coding Level of Care Code ED Emergency Telecommunications Dispatcher for Pop Spence
[2023-10-20 11:07] LABS: Basophils % 0.3 %; Eosinophils % 0.1 %; Hematocrit 39.7 % (36-47); Lymphocytes # 0.9 10^3/uL (0.8-4.8); Lymphocytes % 8.1 %; Mean Corpuscular HGB Conc 34.8 g/dL (30-55); Mean Corpuscular Hemoglobin 30.9 pg (27-33); Mean Platelet Volume 9.7 fL (7.4-10.4); Monocytes # 0.7 10^3/uL (0.2-0.9); Monocytes % 6.4 %; Neutrophils # 9.68 10^3/uL (1.8-7.7); Neutrophils % 84.7 %; Nucleated Red Blood Cells % 0 %; Platelet Count 181 10^3/cmm (157-399); Red Blood Count 4.46 10^6/uL (3.85-5.65); White Blood Count 11.42 10^3/uL (3.29-11.43)
[2023-10-20] MEDS: ibuprofen 800 mg tablet PO (11:16)
[2023-10-20 11:17] LABS: Alanine Aminotransferase 16 U/L (0-33); Albumin Level 4.2 g/dL (3.5-5.2); Alkaline Phosphatase 62 U/L (35-105); Anion Gap 17.5 (5-19); Aspartate Amino Transferase 18 U/L (0-32); Blood Urea Nitrogen 11 mg/dL (6-20); C Reactive Protein 184.1 mg/L (0.0-4.9); Calcium 9.1 mg/dL (8.5-10.5); Carbon Dioxide 19 mmol/L (22-29); Chloride 102 mmol/L (98-107); Creatinine Clr Calc Pharmacy 114.9364; Globulin 3.5 g/dL (1.3-4.6); Glomerular Filtration Rate 87.4 mL/min (90-130); Glucose 106 mg/dL (65-115); Osmolality Calculated 280 mOsm/kg (285-295); Potassium 3.5 mmol/L (3.5-5.1); Sodium 135 mmol/L (136-145); Total Bilirubin 0.6 mg/dL (0.15-1.2); Total Protein 7.7 g/dL (6.6-8.7)
[2023-10-20 11:30] LABS: Rapid Strep A Test Negative (Negative)
[2023-10-20] MEDS: ketorolac 60 mg/2 mL INJ IM (13:35)
[2023-10-20] MEDS: dexamethasone 10 mg/mL INJ IM (13:35)
[2023-10-20 14:44] VITALS: BP 144/86; PULSE 94; RESP 18; TEMP 37.8; O2SAT 100
[2023-10-20 14:56] LABS: Adenovirus Not Detected (NOT DETECT); Chlamydia Pneumoniae Not Detected (NOT DETECT); Coronavirus 229E,HKU1,NL63,OC4 Not Detected (NOT DETECT); Human Metapneumovirus Not Detected (NOT DETECT); Human Rhinovirus/Enterovirus Not Detected (NOT DETECT); Influenza A Not Detected (NOT DETECT); Influenza A H1 Not Detected (NOT DETECT); Influenza A H1-2009 Not Detected (NOT DETECT); Influenza A H3 Not Detected (NOT DETECT); Influenza B Not Detected (NOT DETECT); Mycoplasma Pneumoniae Not Detected (NOT DETECT); Parainfluenza Virus Type 1 Not Detected (NOT DETECT); Parainfluenza Virus Type 2 Not Detected (NOT DETECT); Parainfluenza Virus Type 3 Not Detected (NOT DETECT); Parainfluenza Virus Type 4 Not Detected (NOT DETECT); Respiratory Syncytial Virus A Not Detected (NOT DETECT); Respiratory Syncytial Virus B Not Detected (NOT DETECT); SARS-COV-2 Not Detected (NOT DETECT)
== END 2023-10-20 14:32 | disposition home or self-care (01) ==
PROVIDERS: Family Medicine; Emergency Provider Emergency Medicine; PCP Registered Nurse
DX: J06.9 Acute upper respiratory infection, unspecified (principal); R05.9 Cough, unspecified; R50.9 Fever, unspecified
CPT/HCPCS: 36415; 71045; 80053; 85025; 86140; 86308; 87081; 87486; 87581; 87633; 87880; 96372; 99284; J1100; J1885

== ENCOUNTER 2024-01-09 08:26 | Outpatient (CLI) | payer BC, MEDICAID, SELFPAY ==
--- NOTE | 2024-01-09 08:29 | US_ITS ---
WS: [id number] ULTRASOUND RIGHT BREAST HISTORY: MASS OF R BREAST, palpable area COMPARISON: None available. TECHNIQUE: 2-D and Doppler. Ultrasound is directed to the RIGHT breast at 12:00 at the palpable area. There is no mass identified . Normal appearance of the soft tissues. No solid or cystic mass. No distortion. US/US breast RT limited* [id number] IMPRESSION: BI-RADS: 1-Negative FOLLOW-UP: See Report No mass RIGHT breast at the site of the palpable abnormality. No additional getachew ging necessary.
== END 2024-01-09 08:27 | disposition home or self-care (01) ==
LOC: RAD 08:26
PROVIDERS: PCP Registered Nurse; Visit Provider Registered Nurse
DX: N63.10 Unspecified lump in the right breast, unspecified quadrant (principal)
CPT/HCPCS: 76642

== ENCOUNTER → 2024-04-07 10:45 | Outpatient (BNVA) | payer BC, MEDICAID, SELFPAY | PROVIDERS: PCP Registered Nurse; Visit Provider Nurse Practitioner | DX: R05.9 Cough, unspecified (principal) | CPT/HCPCS: 87426 ==

== ENCOUNTER 2025-01-21 22:23 | Emergency (ER) | payer OTHER, SELFPAY ==
--- OUTSIDE RECORDS SUMMARY | 2025-01-21 22:29 | XMS_ITS | Clinical Summary ---
Author Organization [facility] Address [address] Attn: Epic Prelude ADT JORGE ARCHIBALD [address] Care Team Providers Care Counselor Camp Name Role Phone Chun Marquez MD Primary Care Provider [phone] Allergies No known active allergies Medications busPIRone (BUSPAR) 5 mg tabletIndicatio ns:Generalized anxiety disorder Take 1 Tablet (5 mg) by mouth 3 times daily. 90 Tablet 2 02/16/2024 Active FLUoxetine (PROzac) 20 mg tabletIndicatio ns:Generalized anxiety disorder,Mild episode of recurrent major depressive disorder Take 2 Tablets (40 mg) by mouth daily. 180 Tablet 1 04/19/2024 Active Active Problems No known active problems Encounters Date Type Department Care Team Description 12/17/2024 External Device Data [facility]STRACTION Provider, Abstract 10/29/2024 External Device Data [facility]STRA[facility] Provider, Abstract from Last 3 Months Immunizations Immunization Administration Dates Next Due INFLUENZA VACCINE QUADRIVALENT 3 YR UP PF IM Influenza Seasonal Unspecified Formulation IM Skin Test TB 11/03/2023,07/01/2022 Social History Tobacco Use Types Packs/Day Years Used Date Smoking Tobacco: Never Smokeless Tobacco: Never Tobacco Cessation:Counseling Given: No Alcohol Use Standard Drinks/Week Comments Yes 0 (1 standard drink = 0.6 oz pur e alcohol) occasionally Comments No Sex and Gender Information Value Date Recorded Sex Assigned at Not on file Legal 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 Gender Identity Not on file Sexual Orientation Not on file Last Filed Vital Signs Vital Sign Reading Time Taken Comments Blood Pressure 128/64 04/29/2024 12:47 PM BLEACH ANALYST Pulse 74 04/29/2024 12:47 PM BLEACH ANALYST Temperature 36.6 C (97.9 F) 04/29/2024 12:47 PM BLEACH ANALYST Respiratory Rate 18 04/29/2024 12:47 PM BLEACH ANALYST Oxygen Saturation 99% 04/29/2024 12:47 PM BLEACH ANALYST Inhaled Oxygen Concentration - - Weight 93.7 kg (206 lb 8 oz) 04/29/2024 12:47 PM BLEACH ANALYST Height 160 cm (5' 3 ) 04/29/2024 12:47 PM BLEACH ANALYST Body Mass Index 36.58 04/29/2024 12:47 PM BLEACH ANALYST Plan of Treatment Health Maintenance Due Date Last Done Comments HPV VACCINES (1 - 3-dose series) 2012 DTAP/TDAP/TD VACCINES (1 - Tdap) 2016 HEPATITIS B VACCINES (1 of 3 - 19+ 3-dose series) 2016 CERVICAL CANCER SCREENING 2018 HPV/Cotest (21-29) 2018 PAP SMEAR 2018 INFLUENZA VACCINE (#1) 2025 4, 11/03/2023, 11/03/2023, Additional history exists Care Teams Counselor Camp Relationship Specialty Start Date End Date Chun Marquez MD [address] [facility] [address] [place] [id number] PCP - General Family Practice 08/22/23
[2025-01-21 22:30] VITALS: BP 145/95; PULSE 80; RESP 18; TEMP 36.7; O2SAT 98; BMI 34.7
--- NOTE | 2025-01-21 22:36 | CTR_ITS ---
PROCEDURE INFORMATION: Exam: CT Abdomen And Pelvis With Contrast Exam date and time: 01/21/2025 11:19 PM Age: 29 years old Clinical indication: Abdominal pain; Other: Upper; Additional info: Epigastric abd pain TECHNIQUE: Imaging protocol: Computed tomography of the abdomen and pelvis with contrast. Radiation optimization: All CT scans at this facility use at least one of these dose optimization techniques: automated exposure control; mA and/or kV adjustment per patient size (includes targeted exams where dose is matched to clinical indication); or iterative reconstruction. Contrast material: OMNI 350; Contrast volume: 100 ml; Contrast route: INTRAVENOUS (IV); COMPARISON: No relevant prior studies available. RADIATION DOSE METRICS: Total DLP (mGy-cm): 767.93 FINDINGS: Liver: Normal. No mass. Gallbladder and biliary ducts: Normal. No calcified stones. No ductal dilation. Pancreas: Normal. No ductal dilation. Spleen: Normal. No splenomegaly. Adrenal glands: Normal. No mass. Kidneys and ureters: Probable extrarenal pelvis on the right kidney. Stomach and bowel: Unremarkable. No obstruction. No mucosal thickening. Appendix: No evidence of appendicitis. Intraperitoneal space: Unremarkable. No free air. No significant fluid collection. Vasculature: Retroaortic left renal vein. Lymph nodes: Unremarkable. No enlarged lymph nodes. Urinary bladder: Unremarkable as visualized. Reproductive: Unremarkable as visualized. Bones/joints: Unremarkable. No acute fracture. Soft tissues: Unremarkable. Other findings: Mild motion artifact limits exam. CT/CT abdomen pelvis w con* [id number] IMPRESSION: No definite acute abdominopelvic abnormality.
--- NOTE | 2025-01-21 22:37 | W.ED.ABDPA2 ---
HPI - Abdominal Pain General: Chief Complaint: Abdominal Pain Stated Complaint: ABD Pain Time Seen by Provider: 01/21/25 22:31 History of Present Illness: Patient comes in with abdominal pain. She states that it started about a month ago, has been off and on, typically after she eats. She describes it as a pressure that is in her right upper quadrant and circles around her entire upper abdomen. Associate with nausea when it occurs. Denies vomiting, diarrhea, or fever. On physical exam she has tenderness to palpation in her epigastric and right upper quadrant. Will check labs, CT abdomen pelvis with IV contrast, give IV fluids, treat pain with 15 mg of IV Toradol, and reassess. Associated Symptoms: Reports nausea Related Data Previous Rx's ?Medication ?Instructions ?Recorded fluoxetine 20 mg capsule (Prozac) 40 mg (2 x 20 mg) PO DAILY 90 days 08/30/24 #90 caps pantoprazole 20 mg tablet,delayed 20 mg PO DAILY 90 days #90 tabs 08/30/24 release Allergies Allergy/AdvReac Type Severity Reaction Status Date / Time azithromycin Allergy Intermediate FACIAL Verified 08/30/24 08:55 SWELLING Review of Systems GI: Reports: abdominal pain and nausea [facility] PFSH: Medical History (Updated 01/22/25 @ 00:11 by Toro Diamond MD) Pharyngitis Shortness of breath URI with cough and congestion Chest pain Recurrent syncope Syncope No pertinent past medical history Denies diabetes, asthma, seizures, hypertension, DVT/PE PMD: [facility] Surgical History Status post tubal ligation 04/02/2020---[place]ar[place] [facility] [place] Pathology showed no histological changes. No pathology identified on laparoscopy Family History Grandfather Diabetes maternal Cancer Maternal-liver Grandmother Diabetes maternal Mother Thyroid disease Sister Thyroid disease Family/Other Breast cancer Paternal aunt; diagnosed in late 30s Family/Other Cancer Mother Cancer Grandfather Cancer Diabetes Grandmother Dementia Denies family history of Colon cancer Ovarian cancer CAD (coronary artery disease) Clotting disorder Heart disease Hyperlipidemia Chronic kidney disease (CKD) Suicide Anesthesia complication Bleeding disorder Lung disease Hypertension Uterine cancer Stroke Social History Smoking and tobacco/nicotine status: never used tobacco/nicotine Alcohol intake: never Substance/Drug Use: never Physical Exam Const: COMMON NORMALS: patient oriented x3, healthy appearing and alert HENMT: COMMON NORMALS: normocephalic and atraumatic HEAD & SCALP: normocephalic and atraumatic Neck/C-Spine: COMMON NORMALS: full ROM and supple Resp: COMMON NORMALS: normal respiratory effort, No retractions and No use of accessory muscles Cardio: COMMON NORMALS: regular rate and regular rhythm RATE: regular rate RHYTHM: regular rhythm GI: OTHER: Tenderness to palpation in the epigastric and right upper quadrant Extremity: COMMON NORMALS: normal to inspection and full ROM Neuro: COMMON NORMALS: patient oriented x3 SENSORIUM/ORIENTATION: Yes alert Psych: COMMON NORMALS: mental status grossly normal and cooperative Course Vital Signs: Vital signs: Vital Signs Temperature 98.1 F 01/21/25 22:30 Pulse Rate 80 01/21/25 22:30 Respiratory Rate 18 01/21/25 22:30 Blood Pressure 145/95 01/21/25 22:30 Pulse Oximetry 98 01/21/25 22:30 Oxygen Delivery Me thod Room Air 01/21/25 22:30 MDM - Abdominal Pain Medical Decision Making On reassessment talked with the patient about her test results. Her CT scan shows no acute intra-abdominal pathology. Will refer her to surgery for further evaluation of her gallbladder and possible HIDA scan. Lab Data 01/21/25 22:42 01/21/25 22:42 Labs/Radiology: Radiology Impressions Abdomen/Pelvis CT 01/21/25 22:36 IMPRESSION: No definite acute abdominopelvic abnormality. Laboratory Results WBC 11.59 10^3/uL (3.29-11.43) H 01/21/25 22:42 RBC 4.63 10^6/uL (3.85-5.65) 01/21/25 22:42 Hgb 14.40 g/dL (11.27-16.99) 01/21/25 22:42 Hct 40.6 % (36-47) 01/21/25 22:42 MCV 87.7 fl (85-98) 01/21/25 22:42 MCH 31.1 pg (27-33) 01/21/25 22:42 MCHC 35.5 g/dL (30-55) 01/21/25 22:42 RDW 11.9 % (12.1-15.1) L 01/21/25 22:42 Plt Count 258 10^3/cmm (157-399) 01/21/25 22:42 MPV 9.0 fL (7.4-10.4) 01/21/25 22:42 Neut % (Auto) 67.9 % 01/21/25 22:42 Lymph % (Auto) 25.0 % 01/21/25 22:42 [place] % (Auto) 5.6 % 01/21/25 22:42 Eos % (Auto) 1.0 % 01/21/25 22: Baso % (Auto) 0.3 % 01/21/25 22: Neut # (Auto) 7.87 10^3/uL (1.8-7.7) H 01/21/25 22:42 Lymph # (Auto) 2.9 10^3/uL (0.8-4.8) 01/21/25 22:42 [place] # (Auto) 0.7 10^3/uL (0.2-0.9) 01/21/25 22:42 Eos # (Auto) 0.1 10^3/uL (0.0-0.8) 01/21/25 22:42 Baso # (Auto) 0.0 10^3/uL (0.0-0.1) 01/21/25 22: Nucleated RBC % (auto) 0 % 01/21/25 22: Nucleated RBCs # 0.0 /100WBC 01/21/25 22:42 Sodium 139 mmol/L (136-145) 01/21/25 22:42 Potassium 3.8 mmol/L (3.5-5.1) 01/21/25 22:42 Chloride 101 mmol/L (98-107) 01/21/25 22: Carbon Dioxide 25 mmol/L (22-29) 01/21/25 22:42 Anion Gap 16.8 (5-19) 01/21/25 22:42 BUN 12 mg/dL (6-20) 01/21/25 22:42 Creatinine 0.8 mg/dL (0.5-0.9) 08/05/25 22:42 GFR Calculation 86.0 mL/min (90-130) L 01/21/25 22:42 Glucose 107 mg/dL (65-115) 01/21/25 22:42 Calculated Osmolality 288 mOsm/kg (285-295) 01/21/25 22:42 Calcium 9.9 mg/dL (8.5-10.5) 01/21/25 22:42 Total Bilirubin 0.4 mg/dL (0.15-1.2) 01/21/25 22:42 AST 31 U/L (0-32) 01/21/25 22:42 ALT 22 U/L (0-33) 01/21/25 22:42 Alkaline Phosphatase 80 U/L (35-105) 01/21/25 22:42 Total Protein 7.9 g/dL (6.6-8.7) 01/21/25 22:42 Albumin 4.7 g/dL (3.5-5.2) 01/21/25 22:42 Globulin 3.2 g/dL (1.3-4.6) 01/21/25 22:42 Lipase 33 U/L (13-60) 01/21/25 22:42 HCG, Qual Negative (Negative) 01/21/25 22:42 All radiology interpretation(s) finalized by discharge Discharge Plan Discharge Patient Disposition: Home Clinical Impression: Abdominal pain Condition: Stable Prescriptions: No Action pantoprazole 20 mg tablet,delayed release (DR/EC) 20 mg PO DAILY 90 Days Qty: 90 3RF fluoxetine [Prozac] 20 mg capsule 40 mg PO DAILY 90 Days Qty: 90 3RF Discharge Orders: Discharge ED (Routine); Ordered 01/22/25 Ordered By: Toro Diamond Referrals: Willrad Hauser, C[employer]OTHIER [Primary Care Provider, Family Practice] Patient Instructions: Abdominal Pain (ED), Patient Portal & Omer Instructions Print Language: Tajik Coding Level of Care Code ED General Milling Superintendent for Pop Spence
[2025-01-21 22:59] LABS: Hematocrit 40.6 % (36-47); Hemoglobin 14.40 g/dL (11.27-16.99); Mean Corpuscular HGB Conc 35.5 g/dL (30-55); Mean Corpuscular Hemoglobin 31.1 pg (27-33); Mean Corpuscular Volume 87.7 fl (85-98); Nucleated Red Blood Cells % 0 %; Platelet Count 258 10^3/cmm (157-399); Red Blood Count 4.63 10^6/uL (3.85-5.65); White Blood Count 11.59 10^3/uL (3.29-11.43)
[2025-01-21 23:14] LABS: HCG, Serum Qual Negative (Negative)
[2025-01-21] MEDS: iohexol 350 mg/mL 500 mL Btl (per mL) IV (23:22)
[2025-01-21 23:24] LABS: Alanine Aminotransferase 22 U/L (0-33); Albumin Level 4.7 g/dL (3.5-5.2); Alkaline Phosphatase 80 U/L (35-105); Anion Gap 16.8 (5-19); Aspartate Amino Transferase 31 U/L (0-32); Blood Urea Nitrogen 12 mg/dL (6-20); Calcium 9.9 mg/dL (8.5-10.5); Carbon Dioxide 25 mmol/L (22-29); Chloride 101 mmol/L (98-107); Creatinine Clr Calc Pharmacy 111.6668; Globulin 3.2 g/dL (1.3-4.6); Glucose 107 mg/dL (65-115); Lipase 33 U/L (13-60); Osmolality Calculated 288 mOsm/kg (285-295); Potassium 3.8 mmol/L (3.5-5.1); Sodium 139 mmol/L (136-145); Total Protein 7.9 g/dL (6.6-8.7)
[2025-01-22 00:27] VITALS: BP 136/84; PULSE 61; RESP 16; O2SAT 97
--- NOTE | 2025-01-23 07:37 | DCPLANNER ---
messaged gen surg for er f/u
== END 2025-01-22 00:27 | disposition home or self-care (01) ==
PROVIDERS: Emergency Provider Emergency Medicine; PCP Registered Nurse
DX: R10.9 Unspecified abdominal pain (principal)
CPT/HCPCS: 36415; 74177; 80053; 83690; 84703; 85025; 96374; 99285; J1885; J7040

== ENCOUNTER 2025-02-05 07:16 | Outpatient (CLI) | payer OTHER, SELFPAY ==
--- NOTE | 2025-02-05 07:30 | US_ITS ---
WS: [id number] RIGHT UPPER QUADRANT ULTRASOUND HISTORY: abdominal pain COMPARISON: None available. Liver: 14.4 cm in length. Normal size liver and echogenicity. No bile duct dilatation or mass. Portal Vein: Normal hepatopetal flow with monophasic waveform. Gallbladder: Normally distended gallbladder with no stones or wall thickening. CBD: 0.4 cm Pancreas: Normal size and echogenicity. Right kidney: 11.3 cm in length. Normal size and echogenicity. No hydronephrosis or mass. Aorta and IVC: Unremarkable abdominal aorta and IVC. No ascites. US/US gall bladder [id number] IMPRESSION: Normal right upper quadrant ultrasound.
== END 2025-02-05 07:17 | disposition home or self-care (01) ==
LOC: RAD 07:17
PROVIDERS: PCP Registered Nurse; Visit Provider Student in an Organized Health Care Education/Training Program
DX: R10.9 Unspecified abdominal pain (principal)
CPT/HCPCS: 76705

== ENCOUNTER → 2025-02-21 08:00 | Outpatient (BNVA) | payer OTHER, SELFPAY | PROVIDERS: PCP Registered Nurse; Visit Provider Nurse Practitioner | DX: J02.9 Acute pharyngitis, unspecified (principal) | CPT/HCPCS: 87071; 87880 ==

== ENCOUNTER 2025-03-24 02:00 | Emergency (ER) | payer OTHER, MEDICAID, SELFPAY ==
[2025-03-24 01:56] VITALS: BP 128/78; PULSE 79; RESP 16; TEMP 36.8; O2SAT 99; BMI 33.6
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
[2025-03-24] MEDS: ondansetron 2 mg/ML SDV 2 mL 4 MG IVP (02:36)
[2025-03-24 02:37] VITALS: RESP 16; O2SAT 99
[2025-03-24] MEDS: morphine 4 mg/mL SDV 1 mL IVP ×2 (02:37→03:32)
[2025-03-24 02:53] LABS: Hematocrit 40.3 % (36-47); Hemoglobin 14.40 g/dL (11.27-16.99); Mean Corpuscular HGB Conc 35.7 g/dL (30-55); Mean Corpuscular Hemoglobin 31.9 pg (27-33); Mean Corpuscular Volume 89.2 fl (85-98); Nucleated Red Blood Cells % 0 %; Platelet Count 230 10^3/cmm (157-399); Red Blood Count 4.52 10^6/uL (3.85-5.65); White Blood Count 9.06 10^3/uL (3.29-11.43)
[2025-03-24 02:59] LABS: Glucose Urine UA Norm (Normal); Nitrate Urine Negative (Negative); Specific Gravity, Urine 1.005 (1.005-1.030); UA Manual Slide Review YES
[2025-03-24 03:01] LABS: Add Urine Microscopic? YES
[2025-03-24 03:32] VITALS: RESP 16
[2025-03-24 03:33] VITALS: BP 129/86; RESP 16
[2025-03-24 03:47] LABS: Alanine Aminotransferase 18 U/L (0-33); Albumin Level 4.9 g/dL (3.5-5.2); Alcohol Level 153 mg/dL (0-10); Alkaline Phosphatase 76 U/L (35-105); Anion Gap 20.9 (5-19); Aspartate Amino Transferase 21 U/L (0-32); Blood Urea Nitrogen 7 mg/dL (6-20); Calcium 9.1 mg/dL (8.5-10.5); Carbon Dioxide 22 mmol/L (22-29); Chloride 103 mmol/L (98-107); Creatinine Clr Calc Pharmacy 125.6143; Globulin 2.8 g/dL (1.3-4.6); Glucose 88 mg/dL (65-115); Osmolality Calculated 291 mOsm/kg (285-295); Potassium 3.9 mmol/L (3.5-5.1); Sodium 142 mmol/L (136-145); Total Protein 7.7 g/dL (6.6-8.7)
[2025-03-24 04:48] VITALS: BP 127/79; PULSE 80; RESP 16; O2SAT 98
== END 2025-03-24 04:50 | disposition home or self-care (01) ==
PROVIDERS: Emergency Provider Emergency Medicine; PCP Registered Nurse
DX: S13.4XXA Sprain of ligaments of cervical spine, initial encounter (principal); S06.0X1A Concussion with loss of consciousness of 30 minutes or less, initial encounter; S01.312A Laceration without foreign body of left ear, initial encounter; V86.69XA Passenger of other special all-terrain or other off-road motor vehicle injured in nontraffic accident, initial encounter
CPT/HCPCS: 13152; 36415; 70450; 71045; 72125; 72170; 73130; 80053; 80307; 81001; 85025; 96374; 96375; 96376; 99285; J2270; J2405; J9999